=== PATIENT | female | born 1955 | race Hispanic/Latino ===

== ENCOUNTER 2019-12-12 10:09 | Emergency (ER) | payer MEDICARE ==
[~2019-12-12 10:09] MED LIST: ACET1TAB12 PO; AMLO-258 PO; AMOX-429 PO; CAND16TA12 PO; HYDR25TA PO; LEVO175T9 PO; LORA10TA7 PO; MELO-106 PO; METF-445 PO; TRAZ-185 PO
[2019-12-12 11:18] LABS: CREATININE 3.5 mg/dL (0.5-1.5); POTASSIUM 4.8 mmol/L (3.5-5.1)
[2019-12-12 11:19] LABS: ALBUMIN 2.8 g/dL (3.5-5.0); BILIRUBIN,TOTAL 0.6 mg/dL (0.2-1.0); TOTAL PROTEIN, SERUM 7.5 g/dL (6.0-8.3)
[2019-12-12 11:31] LABS: BASOPHILS % (AUTO) 0.6 % (0.0-5.0); EOSINOPHILS % (AUTO) 2.2 % (0.0-8.0); HEMATOCRIT 32.9 % (36-48); LYMPHOCYTES % (AUTO) 18.9 % (21.0-51.0); MEAN CORPUSCULAR HEMOGLOBIN 29.5 pg (27.0-33.0); MEAN CORPUSCULAR HGB CONC 31.6 g/dL (32.0-36.0); MEAN CORPUSCULAR VOLUME 93.2 fL (79-99); MONOCYTES % (AUTO) 5.7 % (3.0-13.0); NEUTROPHILS % (AUTO) 72.4 % (40.0-77.0); PLATELET COUNT (AUTO) 161 K/uL (130-400); RED BLOOD CELL COUNT(AUTO) 3.53 MIL/uL (4.00-5.50); RED CELL DISTRIBUTION WIDTH 14.1 % (11.0-15.5); WHITE BLOOD COUNT (AUTO) 5.1 K/uL (4.8-10.8)
[2019-12-12 11:38] LABS: INR 0.93 (0.85-1.15); PARTIAL THROMBOPLASTIN TIME 31.8 SEC (26.3-35.5); PROTHROMBIN TIME 10.1 SEC (9.6-11.6)
--- NOTE | 2019-12-12 13:10 | NUR ---
RE:PARACENTESIS PROCEDURE PERFORMED BY DR Colt BROWNE. PUNCTURE SITE LLQ. PATIENT TOLERATED PROCEDURE WELL. TOTAL REMOVED 5 LITERS OF CLOUDY YELLOW FLUID. ALBUMIN 25% 25GRAMS IV GIVEN PER [facility] ALBUMIN PROTOCOL. END OF PROCEDURE AT 1300. REPORT GIVEN TO VIVI ORTIZ AND PATIENT TRANSPORTED TO ED 13 VIA STRETCHER.
[2019-12-12] MEDS ORDERED: ALBUMIN (HUMAN) 25% 100 ML IV ONE (13:23)
== END 2019-12-12 15:06 | disposition home or self-care (01) ==
LOC: EDH 10:09
DX: R10.84 Generalized abdominal pain (principal); R18.8 Other ascites; F41.9 Anxiety disorder, unspecified; F32.9 Major depressive disorder, single episode, unspecified; E11.9 Type 2 diabetes mellitus without complications; I10 Essential (primary) hypertension; E78.5 Hyperlipidemia, unspecified; Z90.49 Acquired absence of other specified parts of digestive tract; Z87.891 Personal history of nicotine dependence
CPT/HCPCS: 36415; 49083; 80053; 85025; 85610; 85730; 96365; 99285; A4215; P9046

== ENCOUNTER 2020-01-03 12:49 | Emergency (ER) | payer MEDICARE ==
[2020-01-03] MEDS ORDERED: FUROSEMIDE 10 MG/ML 4ML VIAL ONE (14:04)
== END 2020-01-03 14:57 | disposition home or self-care (01) ==
LOC: EDH 12:49
DX: N18.9 Chronic kidney disease, unspecified (principal); R18.8 Other ascites; E11.9 Type 2 diabetes mellitus without complications; I10 Essential (primary) hypertension; F41.9 Anxiety disorder, unspecified; F32.9 Major depressive disorder, single episode, unspecified; E78.5 Hyperlipidemia, unspecified; Z90.49 Acquired absence of other specified parts of digestive tract; Z87.891 Personal history of nicotine dependence
CPT/HCPCS: 36415; 71045; 80053; 83690; 84484; 85025; 85610; 85730; 93005; 96374; 99285; J1940

== ENCOUNTER → 2020-06-17 | Outpatient (CLI) | payer OTHER, MEDICARE ==
[~2020-06-17] MED LIST changes: +ALBUMIN (HUMAN) 25% 200 ML IV SCH
--- NOTE | 2020-06-17 10:50 | NUR ---
U/S GUIDED PARACENTESIS PROCEDURE PERFORMED BY DR. CHING. PUNCTURE SITE LEFT LOWER QUADRANT AND PATIENT TOLERATED PROCEDURE WELL. TOTAL REMOVED 8.0 LITERS OF CLOUDY YELLOW TINGED ASCITES FLUID. END OF PROCEDURE AT 1130. CATHETER REMOVED AND DRESSING APPLIED. NO BLEEDING NOTED. ALBUMIN 25% 50 GRAMS GIVEN IV PER ALBUMIN PROTOCOL. RIGHT HAND PIV DC'D, BANDAID APPLIED, DRESSING DRY AND INTACT. DISCHARGE INSTRUCTIONS GIVEN TO PATIENT. PATIENT VERBALIZED UNDERSTANDING. PT DISCHARGED VIA WALKER @ 1150. PT STABLE, AAO X 3 WITH NO C/O PAIN.
[2020-06-17 10:58] LABS: BASOPHILS % (AUTO) 0.5 % (0.0-5.0); EOSINOPHILS % (AUTO) 1.4 % (0.0-8.0); HEMATOCRIT 37.3 % (36-48); LYMPHOCYTES % (AUTO) 15.3 % (21.0-51.0); MEAN CORPUSCULAR HEMOGLOBIN 30.5 pg (27.0-33.0); MEAN CORPUSCULAR HGB CONC 31.9 g/dL (32.0-36.0); MEAN CORPUSCULAR VOLUME 95.6 fL (79-99); MONOCYTES % (AUTO) 5.1 % (3.0-13.0); NEUTROPHILS % (AUTO) 77.5 % (40.0-77.0); PLATELET COUNT (AUTO) 184 K/uL (130-400); RED CELL DISTRIBUTION WIDTH 13.7 % (11.0-15.5); WHITE BLOOD COUNT (AUTO) 6.7 K/uL (4.8-10.8)
[2020-06-17 11:08] LABS: BILIRUBIN,TOTAL 0.6 mg/dL (0.2-1.0); CREATININE 3.7 mg/dL (0.5-1.5); POTASSIUM 4.9 mmol/L (3.5-5.1); TOTAL PROTEIN, SERUM 7.5 g/dL (6.0-8.3)
[2020-06-17 12:07] LABS: INR 0.96 (0.85-1.15); PROTHROMBIN TIME 10.3 SEC (9.6-11.6)
[2020-06-17 17:40] LABS: APPEARANCE BODY FLUID CLEAR (CLEAR); BODY FLUID WBC 247 /cu. mm.; COLOR,BODY FLUID YELLOW (LT YELLOW); SPECIMENTYPE,BODY FLUID ASCITES; TOTAL VOLUME,BODY FLUID 8000 mL
[2020-06-17 17:41] LABS: BODY FLUID RBC 131 /cu. mm.
[2020-06-17 17:54] LABS: BF LYMPHOCYTE 40 %; BF OTHER CELLS 13
== END ==
LOC: RAH 10:27
PROVIDERS: ATTEND Internal Medicine Gastroenterology
DX: R18.8 Other ascites (principal)
CPT/HCPCS: 36415; 49083; 80053; 85025; 85610; 87071; 87205; 89051; A4215; P9046; 96365

== ENCOUNTER → 2020-07-06 | Outpatient (CLI) | payer OTHER, MEDICARE ==
[~2020-07-06] MED LIST changes: +ALBUMIN (HUMAN) 25% 200 ML IV ONE; -ALBUMIN (HUMAN) 25% 200 ML IV SCH; +LEVO500T89 PO
[2020-07-06 13:41] LABS: APPEARANCE BODY FLUID CLEAR (CLEAR); COLOR,BODY FLUID YELLOW (LT YELLOW); SPECIMENTYPE,BODY FLUID ASCITES; TOTAL VOLUME,BODY FLUID 8100 mL
[2020-07-06 13:42] LABS: BODY FLUID RBC 314 /cu. mm.; BODY FLUID WBC 227 /cu. mm.
[2020-07-06 14:00] LABS: BF LYMPHOCYTE 57 %; BF MESOTHELIAL 40 %
== END | disposition home or self-care (01) ==
LOC: RAH 07:52
PROVIDERS: ATTEND Internal Medicine Gastroenterology
DX: R18.8 Other ascites (principal); E11.22 Type 2 diabetes mellitus with diabetic chronic kidney disease; I12.9 Hypertensive chronic kidney disease with stage 1 through stage 4 chronic kidney disease, or unspecified chronic kidney disease; N18.9 Chronic kidney disease, unspecified; E03.9 Hypothyroidism, unspecified; E78.5 Hyperlipidemia, unspecified; I10 Essential (primary) hypertension; E66.9 Obesity, unspecified; F17.200 Nicotine dependence, unspecified, uncomplicated; D64.9 Anemia, unspecified; Z90.49 Acquired absence of other specified parts of digestive tract; Z80.51 Family history of malignant neoplasm of kidney; Z82.49 Family history of ischemic heart disease and other diseases of the circulatory system; Z68.37 Body mass index [BMI] 37.0-37.9, adult
CPT/HCPCS: 49083; 87071; 87205; 88112; 88305; 88341; 88342; 89051; A4215; 96365

== ENCOUNTER → 2020-07-16 | Outpatient (CLI) | payer OTHER, MEDICARE ==
[~2020-07-16] MED LIST changes: -ALBUMIN (HUMAN) 25% 200 ML IV ONE; +ALBUMIN (HUMAN) 25% 200 ML IV SCH; -LEVO500T89 PO
[2020-07-16 17:00] LABS: APPEARANCE BODY FLUID SLIGHTLY CLOUDY (CLEAR); SPECIMENTYPE,BODY FLUID ASCITES
[2020-07-16 17:01] LABS: BODY FLUID WBC 215 /cu. mm.; COLOR,BODY FLUID LT YELLOW (LT YELLOW); TOTAL VOLUME,BODY FLUID 4200 mL
[2020-07-16 17:02] LABS: BODY FLUID RBC 249 /cu. mm.
[2020-07-16 18:12] LABS: BF LYMPHOCYTE 34 %; BF OTHER CELLS 24
== END ==
LOC: RAH 07:45
PROVIDERS: ATTEND Internal Medicine Gastroenterology
DX: R18.8 Other ascites (principal)
CPT/HCPCS: 49083; 87071; 87205; 89051; A4215; P9046; 96365

== ENCOUNTER 2020-07-30 12:35 | Observation (INO) | payer OTHER, MEDICARE ==
[~2020-07-30] VITALS: Ht 154.9 cm; Wt 85.6 kg
[~2020-07-30 12:35] MED LIST changes: -ALBUMIN (HUMAN) 25% 200 ML IV SCH
[2020-07-30 13:05] LABS: BASOPHILS % (AUTO) 0.7 % (0.0-5.0); EOSINOPHILS % (AUTO) 2.9 % (0.0-8.0); HEMATOCRIT 34.9 % (36-48); LYMPHOCYTES % (AUTO) 22.6 % (21.0-51.0); MEAN CORPUSCULAR HEMOGLOBIN 29.6 pg (27.0-33.0); MEAN CORPUSCULAR HGB CONC 31.8 g/dL (32.0-36.0); MEAN CORPUSCULAR VOLUME 93.1 fL (79-99); NEUTROPHILS % (AUTO) 66.6 % (40.0-77.0); PLATELET COUNT (AUTO) 162 K/uL (130-400); RED BLOOD CELL COUNT(AUTO) 3.75 MIL/uL (4.00-5.50); RED CELL DISTRIBUTION WIDTH 13.4 % (11.0-15.5); WHITE BLOOD COUNT (AUTO) 4.4 K/uL (4.8-10.8)
[2020-07-30 13:19] LABS: APPEARANCE,URINE Clear (CLEAR); BILIRUBIN,URINE Negative (NEGATIVE); COLOR,URINE Yellow (YELLOW); GLUCOSE, URINE (UA) 250 mg/dL (NEGATIVE); KETONES,URINE Negative (NEGATIVE); LEUKOCYTE ESTERASE ,URINE Negative (NEGATIVE); NITRATE,URINE Negative (NEGATIVE); OCCULT BLOOD,URINE Negative (NEGATIVE); PROTEIN,URINE 300 mg/dL (NEGATIVE); UROBILINOGEN,URINE 0.2 mg/dL (0.2-1.0)
[2020-07-30 13:20] LABS: CREATININE 3.2 mg/dL (0.5-1.5); POTASSIUM 4.8 mmol/L (3.5-5.1)
[2020-07-30 13:23] LABS: INR 1.01 (0.85-1.15)
[2020-07-30 13:24] LABS: ALBUMIN 3.1 g/dL (3.5-5.0); BILIRUBIN,TOTAL 0.5 mg/dL (0.2-1.0); TOTAL PROTEIN, SERUM 7.3 g/dL (6.0-8.3)
[2020-07-30 13:25] LABS: PARTIAL THROMBOPLASTIN TIME 31.3 SEC (26.3-35.5)
[2020-07-30 13:53] LABS: B-TYPE NATRIURETIC PEPTIDE 104 pg/mL (0-100)
[2020-07-30 14:05] LABS: AMORPHOUS SEDIMENT,UR Few /LPF (None Seen); BACTERIA,URINE Few /HPF (None Seen); RBC,URINE None Seen /HPF (0-1)
[2020-07-30] MEDS ORDERED: ZOSYN 3.375GM +NS 50ML IV SCH (14:30)
[2020-07-30] MEDS ORDERED: LABETALOL 20 MG/4 ML DISP.SYRIN IV PRN (14:30)
[2020-07-30] MEDS ORDERED: ACETAMINOPHEN 325 MG TAB PO PRN (14:30)
[2020-07-30] MEDS ORDERED: ONDANSETRON HCL 4 MG/2 ML VIAL IVP PRN (14:30)
[2020-07-30] MEDS ORDERED: CLONIDINE HCL 0.1 MG TABLET PO PRN (14:30)
[2020-07-30] MEDS ORDERED: RENAL DOSE IV PRN (14:30)
[2020-07-30] MEDS ORDERED: ACETAMINOPHEN 650 MG SUPPOSITORY RC PRN (14:30)
[2020-07-30] MEDS ORDERED: ZOSYN 3.375GM+NS 50ML 50 ML IV ONE (14:45)
[2020-07-30] MEDS ORDERED: LABETALOL 20 MG/4 ML DISP.SYRIN IV ONE (14:46)
[2020-07-30] MEDS: ZOSYN 3.375GM+NS 50ML 50 ML IV SCH (16:00)
[2020-07-30] MEDS ORDERED: ALBUMIN (HUMAN) 25% 200 ML IV ONE (16:15)
[2020-07-30] MEDS: METOCLOPRAMIDE 5 MG TABLET PO SCH ×2 (16:30→20:38)
[2020-07-30] MEDS ORDERED: CLONIDINE HCL 0.1 MG TABLET ONE (16:35)
[2020-07-30 16:40] LABS: ALBUMIN,BODY FLUID 1.5 g/dL
[2020-07-30 16:57] LABS: APPEARANCE BODY FLUID SLIGHTLY CLOUDY (CLEAR); COLOR,BODY FLUID YELLOW (LT YELLOW); SPECIMENTYPE,BODY FLUID ASCITES; TOTAL VOLUME,BODY FLUID 5000 mL
[2020-07-30 16:58] LABS: BODY FLUID RBC 162 /cu. mm.; BODY FLUID WBC 147 /cu. mm.
[2020-07-30 17:29] LABS: BF LYMPHOCYTE 22 %; BF MESOTHELIAL 70 %
[2020-07-30 19:00] VITALS: BP 145/49
[2020-07-30 20:00] VITALS: BP 145/49
[2020-07-30] MEDS: LACTULOSE 20 GM/30 ML UDCUP PO SCH (20:38)
[2020-07-30 23:40] VITALS: BP 132/54
[2020-07-31 04:05] VITALS: BP 152/47
[2020-07-31] MEDS: ZOSYN 3.375GM+NS 50ML 50 ML IV SCH (04:37)
[2020-07-31] MEDS: INSULIN HUMULIN R 100 UNIT/ML 3ML SQ SCH ×2 (06:05→11:33)
[2020-07-31 06:33] LABS: BASOPHILS % (AUTO) 0.5 % (0.0-5.0); EOSINOPHILS % (AUTO) 3.5 % (0.0-8.0); HEMATOCRIT 32.1 % (36-48); LYMPHOCYTES % (AUTO) 25.6 % (21.0-51.0); MEAN CORPUSCULAR HGB CONC 32.1 g/dL (32.0-36.0); MEAN CORPUSCULAR VOLUME 93.6 fL (79-99); MONOCYTES % (AUTO) 8.8 % (3.0-13.0); NEUTROPHILS % (AUTO) 61.3 % (40.0-77.0); PLATELET COUNT (AUTO) 137 K/uL (130-400); RED BLOOD CELL COUNT(AUTO) 3.43 MIL/uL (4.00-5.50); RED CELL DISTRIBUTION WIDTH 13.4 % (11.0-15.5); WHITE BLOOD COUNT (AUTO) 3.8 K/uL (4.8-10.8)
[2020-07-31] MEDS: METOCLOPRAMIDE 5 MG TABLET PO SCH ×2 (06:39→11:30)
[2020-07-31 06:40] LABS: CREATININE 3.1 mg/dL (0.5-1.5); POTASSIUM 4.7 mmol/L (3.5-5.1)
[2020-07-31 08:00] VITALS: BP 164/65
[2020-07-31] MEDS: LACTULOSE 20 GM/30 ML UDCUP PO SCH (08:14)
[2020-07-31] MEDS ORDERED: PANTOPRAZOLE SODIUM 40 MG TABLET.DR PO SCH (09:00)
[2020-07-31] MEDS ORDERED: Vitamin B Complex/Vit C/Folic Acid PO SCH (09:00)
[2020-07-31 12:00] VITALS: BP 184/59
[2020-07-31] MEDS ORDERED: LEVO500T89 PO ×2 (12:16)
[2020-07-31] MEDS ORDERED: AMLODIPINE BESYLATE 5 MG TAB PO SCH (12:48)
[2020-07-31] MEDS ORDERED: METFORMIN HCL 850 MG TABLET PO SCH (17:00)
[2020-07-31] MEDS ORDERED: TRAZODONE HCL 50 MG TAB PO SCH (21:00)
[2020-08-01] MEDS ORDERED: LEVOTHYROXINE 75 MCG TABLET PO SCH (07:30)
[2020-08-01] MEDS ORDERED: LEVOTHYROXINE 100 MCG TABLET PO SCH (07:30)
[2020-08-01] MEDS ORDERED: CANDESARTAN CILEXETIL 16 MG TAB PO SCH (09:00)
[2020-08-01] MEDS ORDERED: LORATADINE 10 MG TABLET PO SCH (09:00)
[2020-08-01] MEDS ORDERED: HYDROCHLOROTHIAZIDE 25 MG TABLET PO SCH (09:00)
== END 2020-07-31 13:40 | disposition home or self-care (01) ==
LOC: EDH 12:35 → EDHIP 14:18 → 3AH 19:02
PROVIDERS: ADMIT Internal Medicine Critical Care Medicine; ATTEND Internal Medicine Critical Care Medicine
DX: K70.31 Alcoholic cirrhosis of liver with ascites (principal); Z20.822 Contact with and (suspected) exposure to COVID-19; E87.70 Fluid overload, unspecified; I12.9 Hypertensive chronic kidney disease with stage 1 through stage 4 chronic kidney disease, or unspecified chronic kidney disease; E11.22 Type 2 diabetes mellitus with diabetic chronic kidney disease; N18.4 Chronic kidney disease, stage 4 (severe); E78.5 Hyperlipidemia, unspecified; E03.9 Hypothyroidism, unspecified; N17.9 Acute kidney failure, unspecified; D64.9 Anemia, unspecified; F41.9 Anxiety disorder, unspecified; F32.9 Major depressive disorder, single episode, unspecified; E66.9 Obesity, unspecified; Z90.49 Acquired absence of other specified parts of digestive tract; Z79.4 Long term (current) use of insulin; Z79.899 Other long term (current) drug therapy; Z68.35 Body mass index [BMI] 35.0-35.9, adult
CPT/HCPCS: 36415 ×2; 49083; 71045; 74176; 76770; 80048; 80053; 81001; 82042; 82140; 82550; 82948 ×3; 83880; 83935; 84300; 84484 ×3; 85025 ×2; 85610; 85730; 87071; 87205; 87426; 88305; 88112; 88341; 88342; 89051; 93005; 96365; 96366; 99291; A4215; G0378 ×24; J1815; J2543 ×2; P9046; U0003

== ENCOUNTER → 2020-08-17 | Outpatient (CLI) | payer OTHER, MEDICARE ==
[~2020-08-17] MED LIST changes: +ALBUMIN (HUMAN) 25% 200 ML IV SCH; -AMOX-429 PO; +LEVO500T89 PO
[2020-08-17 08:34] LABS: BASOPHILS % (AUTO) 0.8 % (0.0-5.0); EOSINOPHILS % (AUTO) 3.7 % (0.0-8.0); HEMATOCRIT 34.1 % (36-48); LYMPHOCYTES % (AUTO) 25.9 % (21.0-51.0); MEAN CORPUSCULAR HEMOGLOBIN 30.2 pg (27.0-33.0); MEAN CORPUSCULAR HGB CONC 32.3 g/dL (32.0-36.0); MEAN CORPUSCULAR VOLUME 93.7 fL (79-99); MONOCYTES % (AUTO) 7.9 % (3.0-13.0); NEUTROPHILS % (AUTO) 61.4 % (40.0-77.0); PLATELET COUNT (AUTO) 147 K/uL (130-400); RED BLOOD CELL COUNT(AUTO) 3.64 MIL/uL (4.00-5.50); RED CELL DISTRIBUTION WIDTH 13.8 % (11.0-15.5); WHITE BLOOD COUNT (AUTO) 3.8 K/uL (4.8-10.8)
[2020-08-17 08:47] LABS: INR 1.02 (0.85-1.15); PROTHROMBIN TIME 11.1 SEC (9.6-11.6)
[2020-08-17 08:52] LABS: ALBUMIN 3.2 g/dL (3.5-5.0); BILIRUBIN,TOTAL 0.7 mg/dL (0.2-1.0); CREATININE 3.2 mg/dL (0.5-1.5); POTASSIUM 5.1 mmol/L (3.5-5.1); TOTAL PROTEIN, SERUM 7.5 g/dL (6.0-8.3)
[2020-08-17 17:05] LABS: ALBUMIN,BODY FLUID 1.4 g/dL
[2020-08-17 17:40] LABS: APPEARANCE BODY FLUID SLIGHTLY CLOUDY (CLEAR); BODY FLUID WBC 91 /cu. mm.; COLOR,BODY FLUID YELLOW (LT YELLOW); SPECIMENTYPE,BODY FLUID ASCITES; TOTAL VOLUME,BODY FLUID 7000 mL
[2020-08-17 17:41] LABS: BODY FLUID RBC 111 /cu. mm.
[2020-08-17 18:29] LABS: BF LYMPHOCYTE 48 %; BF MESOTHELIAL 30 %
== END ==
LOC: RAH 08:03
PROVIDERS: ATTEND Internal Medicine Gastroenterology
DX: R18.8 Other ascites (principal); E03.9 Hypothyroidism, unspecified; E78.5 Hyperlipidemia, unspecified; E11.22 Type 2 diabetes mellitus with diabetic chronic kidney disease; I12.9 Hypertensive chronic kidney disease with stage 1 through stage 4 chronic kidney disease, or unspecified chronic kidney disease; N18.9 Chronic kidney disease, unspecified; D64.9 Anemia, unspecified; R93.2 Abnormal findings on diagnostic imaging of liver and biliary tract; Z90.49 Acquired absence of other specified parts of digestive tract; Z86.010 Personal history of colon polyps; Z79.899 Other long term (current) drug therapy
CPT/HCPCS: 36415; 49083; 80053; 82042; 84157; 85025; 85610; 87071; 87205; 89051; A4215; P9046; 96365

== ENCOUNTER → 2020-08-24 | Outpatient (CLI) | payer OTHER, MEDICARE | LOC: RAH 08:26 | PROVIDERS: ATTEND Internal Medicine Gastroenterology | DX: R18.8 Other ascites (principal); E78.5 Hyperlipidemia, unspecified; I12.9 Hypertensive chronic kidney disease with stage 1 through stage 4 chronic kidney disease, or unspecified chronic kidney disease; E11.22 Type 2 diabetes mellitus with diabetic chronic kidney disease; N18.4 Chronic kidney disease, stage 4 (severe); E03.9 Hypothyroidism, unspecified; F41.9 Anxiety disorder, unspecified; F32.9 Major depressive disorder, single episode, unspecified | CPT/HCPCS: 76705; P9046 ==

== ENCOUNTER → 2020-08-31 | Outpatient (CLI) | payer OTHER, MEDICARE ==
[~2020-08-31] MED LIST changes: +ALBUMIN (HUMAN) 25% 200 ML IV PRN; -ALBUMIN (HUMAN) 25% 200 ML IV SCH
[2020-08-31 09:54] LABS: BASOPHILS % (AUTO) 0.6 % (0.0-5.0); EOSINOPHILS % (AUTO) 3.6 % (0.0-8.0); HEMATOCRIT 29.5 % (36-48); LYMPHOCYTES % (AUTO) 26.2 % (21.0-51.0); MEAN CORPUSCULAR HEMOGLOBIN 29.9 pg (27.0-33.0); MEAN CORPUSCULAR HGB CONC 31.5 g/dL (32.0-36.0); MEAN CORPUSCULAR VOLUME 94.9 fL (79-99); MONOCYTES % (AUTO) 7.5 % (3.0-13.0); NEUTROPHILS % (AUTO) 61.8 % (40.0-77.0); PLATELET COUNT (AUTO) 138 K/uL (130-400); RED BLOOD CELL COUNT(AUTO) 3.11 MIL/uL (4.00-5.50); RED CELL DISTRIBUTION WIDTH 14.1 % (11.0-15.5); WHITE BLOOD COUNT (AUTO) 3.3 K/uL (4.8-10.8)
[2020-08-31 10:05] LABS: ALBUMIN 2.9 g/dL (3.5-5.0); BILIRUBIN,TOTAL 0.6 mg/dL (0.2-1.0); CREATININE 3.1 mg/dL (0.5-1.5); POTASSIUM 4.5 mmol/L (3.5-5.1); PROTHROMBIN TIME 10.9 SEC (9.6-11.6); TOTAL PROTEIN, SERUM 6.7 g/dL (6.0-8.3)
[2020-08-31 10:43] LABS: ALBUMIN,BODY FLUID 1.4 g/dL
[2020-08-31 12:08] LABS: APPEARANCE BODY FLUID CLEAR (CLEAR); COLOR,BODY FLUID LT YELLOW (LT YELLOW); SPECIMENTYPE,BODY FLUID ASCITES; TOTAL VOLUME,BODY FLUID 4500 mL
[2020-08-31 12:09] LABS: BODY FLUID RBC 140 /cu. mm.; BODY FLUID WBC 150 /cu. mm.
[2020-08-31 13:16] LABS: BF LYMPHOCYTE 32 %; BF MESOTHELIAL 16 %; BF MONOCYTE 7 %
== END ==
LOC: RAH 08:41
PROVIDERS: ATTEND Internal Medicine Gastroenterology
DX: R18.8 Other ascites (principal)
CPT/HCPCS: 36415; 49083; 80053; 82042; 84157; 85025; 85610; 87071; 87205; 89051; A4215; 96365

== ENCOUNTER → 2020-09-14 | Outpatient (CLI) | payer OTHER, MEDICARE ==
[~2020-09-14] MED LIST changes: -ALBUMIN (HUMAN) 25% 200 ML IV PRN; +ALBUMIN (HUMAN) 25% 200 ML IV SCH
[2020-09-14 09:37] LABS: HEMATOCRIT 31.6 % (36-48); MEAN CORPUSCULAR HGB CONC 31.6 g/dL (32.0-36.0); MEAN CORPUSCULAR VOLUME 94.9 fL (79-99); PLATELET COUNT (AUTO) 146 K/uL (130-400); RED BLOOD CELL COUNT(AUTO) 3.33 MIL/uL (4.00-5.50); RED CELL DISTRIBUTION WIDTH 14.3 % (11.0-15.5); WHITE BLOOD COUNT (AUTO) 4.1 K/uL (4.8-10.8)
[2020-09-14 09:53] LABS: BILIRUBIN,TOTAL 0.4 mg/dL (0.2-1.0); CREATININE 3.1 mg/dL (0.5-1.5); POTASSIUM 5.1 mmol/L (3.5-5.1); TOTAL PROTEIN, SERUM 7.1 g/dL (6.0-8.3)
[2020-09-14 09:56] LABS: INR 0.99 (0.85-1.15); PROTHROMBIN TIME 10.8 SEC (9.6-11.6)
[2020-09-14 10:25] LABS: BASOPHILS % (AUTO) 0.8 % (0.0-5.0); LYMPHOCYTES % (AUTO) 23.3 % (21.0-51.0); MONOCYTES % (AUTO) 7.4 % (3.0-13.0); NEUTROPHILS % (AUTO) 64.2 % (40.0-77.0)
[2020-09-14 11:16] LABS: ALBUMIN,BODY FLUID 1.4 g/dL
[2020-09-14 12:37] LABS: APPEARANCE BODY FLUID CLEAR (CLEAR); BODY FLUID WBC 203 /cu. mm.; COLOR,BODY FLUID LT YELLOW (LT YELLOW); SPECIMENTYPE,BODY FLUID ASCITES; TOTAL VOLUME,BODY FLUID 5300 mL
[2020-09-14 12:38] LABS: BODY FLUID RBC 98 /cu. mm.
[2020-09-14 12:44] LABS: BF LYMPHOCYTE 30 %; BF MESOTHELIAL 61 %
== END | disposition home or self-care (01) ==
LOC: RAH 07:53
PROVIDERS: ATTEND Internal Medicine Gastroenterology
DX: R18.8 Other ascites (principal)
CPT/HCPCS: 36415; 49083; 80053; 82042; 84157; 85025; 85610; 85730; 87071; 87205; 89051; 96365; A4215; P9046

== ENCOUNTER → 2020-09-29 | Outpatient (CLI) | payer OTHER, MEDICARE ==
[~2020-09-29] MED LIST changes: +AMOX-429 PO
[2020-09-29 16:45] LABS: SPECIMENTYPE,BODY FLUID ASCITES
[2020-09-29 16:46] LABS: APPEARANCE BODY FLUID SLIGHTLY CLOUDY (CLEAR); BODY FLUID RBC 170 /cu. mm.; BODY FLUID WBC 147 /cu. mm.; COLOR,BODY FLUID LT YELLOW (LT YELLOW); TOTAL VOLUME,BODY FLUID 5400 mL
[2020-09-29 17:32] LABS: BF LYMPHOCYTE 55 %; BF MESOTHELIAL 21 %
== END | disposition home or self-care (01) ==
LOC: RAH 07:53
PROVIDERS: ATTEND Internal Medicine Gastroenterology
DX: R18.8 Other ascites (principal); E11.22 Type 2 diabetes mellitus with diabetic chronic kidney disease; I12.9 Hypertensive chronic kidney disease with stage 1 through stage 4 chronic kidney disease, or unspecified chronic kidney disease; N18.9 Chronic kidney disease, unspecified; K59.00 Constipation, unspecified; E66.9 Obesity, unspecified; D64.9 Anemia, unspecified; F17.200 Nicotine dependence, unspecified, uncomplicated; E78.5 Hyperlipidemia, unspecified; E03.9 Hypothyroidism, unspecified; Z79.899 Other long term (current) drug therapy; Z79.4 Long term (current) use of insulin; Z79.890 Hormone replacement therapy; Z98.890 Other specified postprocedural states; Z90.49 Acquired absence of other specified parts of digestive tract; Z82.49 Family history of ischemic heart disease and other diseases of the circulatory system; Z80.51 Family history of malignant neoplasm of kidney; Z68.36 Body mass index [BMI] 36.0-36.9, adult; Z79.01 Long term (current) use of anticoagulants
CPT/HCPCS: 49083; 87071; 87205; 89051; A4215; P9046; 96365

== ENCOUNTER 2020-10-08 11:41 | Inpatient (IN) | payer OTHER, MEDICARE ==
[~2020-10-08] VITALS: Ht 157.5 cm; Wt 88.5 kg
[~2020-10-08 11:41] MED LIST changes: -ALBUMIN (HUMAN) 25% 200 ML IV SCH; -AMOX-429 PO; -CAND16TA12 PO; +CAND16TA28 PO; -LEVO500T89 PO; +LEVO500T90 PO
[2020-10-08 12:02] LABS: BASOPHILS % (AUTO) 0.8 % (0.0-5.0); EOSINOPHILS % (AUTO) 2.2 % (0.0-8.0); HEMATOCRIT 35.7 % (36-48); LYMPHOCYTES % (AUTO) 18.4 % (21.0-51.0); MEAN CORPUSCULAR HEMOGLOBIN 30.4 pg (27.0-33.0); MEAN CORPUSCULAR HGB CONC 31.9 g/dL (32.0-36.0); MEAN CORPUSCULAR VOLUME 95.2 fL (79-99); MONOCYTES % (AUTO) 5.7 % (3.0-13.0); NEUTROPHILS % (AUTO) 72.6 % (40.0-77.0); PLATELET COUNT (AUTO) 151 K/uL (130-400); RED BLOOD CELL COUNT(AUTO) 3.75 MIL/uL (4.00-5.50); WHITE BLOOD COUNT (AUTO) 6.5 K/uL (4.8-10.8)
[2020-10-08 12:16] LABS: INR 0.93 (0.85-1.15); PROTHROMBIN TIME 10.2 SEC (9.6-11.6)
[2020-10-08 12:21] LABS: B-TYPE NATRIURETIC PEPTIDE 135 pg/mL (0-100)
[2020-10-08 12:43] LABS: ALBUMIN 3.1 g/dL (3.5-5.0); BILIRUBIN,TOTAL 0.5 mg/dL (0.2-1.0); CREATININE 3.8 mg/dL (0.5-1.5); POTASSIUM 5.4 mmol/L (3.5-5.1)
[2020-10-08] MEDS ORDERED: MAG/ALUM/SIMETH 30 ML UDCUP ONE (12:50)
[2020-10-08] MEDS ORDERED: ASPIRIN 325 MG TABLET ONE (12:50)
[2020-10-08] MEDS ORDERED: LIDOCAINE HCL 2% VISCOUS 15 ML UDCUP ONE (12:50)
[2020-10-08 12:54] LABS: PARTIAL THROMBOPLASTIN TIME 28.8 SEC (26.3-35.5)
[2020-10-08 13:02] LABS: MAGNESIUM 2.7 mg/dL (1.80-2.40); PHOSPHORUS 4.6 mg/dL (2.5-4.9)
[2020-10-08] MEDS ORDERED: LACTULOSE 20 GM/30 ML UDCUP PO PRN (14:45)
[2020-10-08] MEDS ORDERED: ALBUTEROL 0.083% 2.5 MG/3 ML INH IH ONE ×2 (14:45→15:28)
[2020-10-08] MEDS ORDERED: DiphenhydrAMINE HCL 50 MG/ML VIAL IV PRN (14:45)
[2020-10-08] MEDS ORDERED: GUAIFENESIN-DM 200/20 MG 10 ML PO PRN (14:45)
[2020-10-08] MEDS ORDERED: MAG/ALUM/SIMETH 30 ML UDCUP PO PRN (14:45)
[2020-10-08] MEDS ORDERED: ACETAMINOPHEN 325 MG TAB PO PRN ×2 (14:45)
[2020-10-08] MEDS ORDERED: DIPHENHYDRAMINE HCL 25 MG CAPSULE PO PRN (14:45)
[2020-10-08] MEDS ORDERED: INSULIN HUMULIN R 100 UNIT/ML 3ML SQ SCH (14:45)
[2020-10-08] MEDS ORDERED: DEXTROSE 50%-WATER 25 GM/50 ML VIAL IV SCH (14:45)
[2020-10-08] MEDS ORDERED: NITROGLYCERIN 0.4 MG SL TAB SL PRN (14:45)
[2020-10-08] MEDS ORDERED: ONDANSETRON 4MG INJ IV PRN (14:45)
[2020-10-08] MEDS: FUROSEMIDE 20MG VIAL IV SCH (14:45)
[2020-10-08] MEDS ORDERED: CACL 1GM SYG IVP SCH (15:50)
[2020-10-08] MEDS ORDERED: FUROSEMIDE 20MG VIAL ONE (15:50)
[2020-10-08] MEDS ORDERED: DEXTROSE 50%-WATER 50 ML DISP.SYRIN IV ONE ×2 (15:51→18:09)
[2020-10-08] MEDS ORDERED: INSULIN HUMULIN R 100 UNIT/ML 3ML ONE (15:52)
[2020-10-08] MEDS ORDERED: 0.9%NACL 100ML 100 ML IV ONE (15:52)
[2020-10-08] MEDS ORDERED: DEXTROSE 50%-WATER 50 ML DISP.SYRIN IV PRN (16:30)
[2020-10-08] MEDS: INSULIN HUMULIN R 100 UNIT/ML 3ML SQ SCH ×2 (16:30→21:00)
[2020-10-08] MEDS ORDERED: GLUCAGON 1MG KIT 1 MG ML IM PRN (16:30)
[2020-10-08 16:46] LABS: APPEARANCE,URINE Clear (CLEAR); BILIRUBIN,URINE Negative (NEGATIVE); COLOR,URINE Yellow (YELLOW); GLUCOSE, URINE (UA) TRACE mg/dL (NEGATIVE); KETONES,URINE Negative (NEGATIVE); LEUKOCYTE ESTERASE ,URINE Trace (NEGATIVE); NITRATE,URINE Negative (NEGATIVE); OCCULT BLOOD,URINE Negative (NEGATIVE); PROTEIN,URINE 300 mg/dL (NEGATIVE); UROBILINOGEN,URINE 0.2 mg/dL (0.2-1.0)
[2020-10-08 16:51] LABS: BACTERIA,URINE Few /HPF (None Seen); RBC,URINE 0-1 /HPF (0-1); SQUAMOUS EPITHELIAL CELL,UR Few /HPF (0-2)
[2020-10-08 18:39] LABS: CREATININE 3.7 mg/dL (0.5-1.5); POTASSIUM 4.3 mmol/L (3.5-5.1)
[2020-10-08] MEDS ORDERED: METOPROLOL TARTRATE 25 MG TAB ONE (20:29)
[2020-10-08] MEDS ORDERED: HEPARIN 5,000 UNIT VIAL ONE (20:29)
[2020-10-08] MEDS ORDERED: FAMOTIDINE 20MG TAB ONE (20:29)
[2020-10-08] MEDS: METOPROLOL TARTRATE 25 MG TAB PO SCH (21:00)
[2020-10-08] MEDS: HEPARIN 5,000 UNIT VIAL SQ SCH (21:00)
[2020-10-08] MEDS: INSULIN GLARGINE 100 UNITS/ML 10 ML VIAL SQ SCH (21:00)
[2020-10-08] MEDS: FAMOTIDINE 20MG TAB PO SCH (21:00)
[2020-10-08] MEDS: LACTULOSE 20 GM/30 ML UDCUP PO SCH (21:00)
[2020-10-09] VITALS (12 sets, daily range): BP systolic 124–194; BP diastolic 48–85
[2020-10-09 05:20] LABS: BASOPHILS % (AUTO) 0.6 % (0.0-5.0); EOSINOPHILS % (AUTO) 2.2 % (0.0-8.0); HEMATOCRIT 29.2 % (36-48); MEAN CORPUSCULAR HEMOGLOBIN 30.8 pg (27.0-33.0); MEAN CORPUSCULAR HGB CONC 32.5 g/dL (32.0-36.0); MEAN CORPUSCULAR VOLUME 94.8 fL (79-99); PLATELET COUNT (AUTO) 129 K/uL (130-400); RED BLOOD CELL COUNT(AUTO) 3.08 MIL/uL (4.00-5.50); RED CELL DISTRIBUTION WIDTH 14.1 % (11.0-15.5); WHITE BLOOD COUNT (AUTO) 4.7 K/uL (4.8-10.8)
[2020-10-09] MEDS: INSULIN HUMULIN R 100 UNIT/ML 3ML SQ SCH ×4 (05:43→21:00)
[2020-10-09 05:47] LABS: ALBUMIN 2.6 g/dL (3.5-5.0); BILIRUBIN,TOTAL 0.4 mg/dL (0.2-1.0); CREATININE 3.7 mg/dL (0.5-1.5); POTASSIUM 5.4 mmol/L (3.5-5.1); TOTAL PROTEIN, SERUM 6.2 g/dL (6.0-8.3)
[2020-10-09] MEDS: LACTULOSE 20 GM/30 ML UDCUP PO SCH ×3 (07:53→22:20)
[2020-10-09] MEDS: METOPROLOL TARTRATE 25 MG TAB PO SCH ×2 (07:53→22:22)
[2020-10-09] MEDS: ASPIRIN 325 MG TABLET PO SCH (07:53)
[2020-10-09] MEDS: HEPARIN 5,000 UNIT VIAL SQ SCH ×2 (07:54→22:28)
[2020-10-09] MEDS ORDERED: KAYEXALATE 15GM/60ML PO SCH (09:00)
[2020-10-09] MEDS ORDERED: Vitamin B Complex/Vit C/Folic Acid PO SCH (09:00)
[2020-10-09] MEDS ORDERED: LABETALOL 20MG SYG IV PRN (12:30)
[2020-10-09] MEDS: NIFEDIPINE 10 MG CAP PO SCH ×2 (13:20→22:22)
[2020-10-09] MEDS: FUROSEMIDE 20MG VIAL IV SCH (13:20)
[2020-10-09] MEDS ORDERED: ALBUMIN (HUMAN) 25% 100 ML IV ONE (15:06)
[2020-10-09] MEDS ORDERED: ALBUMIN (HUMAN) 25% 200 ML IV ONE (16:00)
[2020-10-09 16:17] LABS: APPEARANCE BODY FLUID SLIGHTLY CLOUDY (CLEAR); COLOR,BODY FLUID YELLOW (LT YELLOW); SPECIMENTYPE,BODY FLUID ASCITES; TOTAL VOLUME,BODY FLUID 4000 mL
[2020-10-09 16:18] LABS: BODY FLUID WBC 195 /cu. mm.
[2020-10-09 16:19] LABS: BODY FLUID RBC 118 /cu. mm.
[2020-10-09 16:24] LABS: BF EOSINOPHIL 8 %; BF LYMPHOCYTE 26 %; BF MESOTHELIAL 38 %; BF OTHER CELLS 3
[2020-10-09] MEDS: FAMOTIDINE 20MG TAB PO SCH (22:22)
[2020-10-09] MEDS: INSULIN GLARGINE 100 UNITS/ML 10 ML VIAL SQ SCH (22:29)
[2020-10-10 00:12] VITALS: BP 114/59
[2020-10-10 04:12] VITALS: BP 147/72
[2020-10-10 05:08] LABS: BASOPHILS % (AUTO) 0.4 % (0.0-5.0); EOSINOPHILS % (AUTO) 3.2 % (0.0-8.0); HEMATOCRIT 29.3 % (36-48); MEAN CORPUSCULAR HEMOGLOBIN 30.2 pg (27.0-33.0); MEAN CORPUSCULAR HGB CONC 31.4 g/dL (32.0-36.0); MEAN CORPUSCULAR VOLUME 96.1 fL (79-99); MONOCYTES % (AUTO) 9.3 % (3.0-13.0); NEUTROPHILS % (AUTO) 56.9 % (40.0-77.0); PLATELET COUNT (AUTO) 134 K/uL (130-400); RED BLOOD CELL COUNT(AUTO) 3.05 MIL/uL (4.00-5.50); RED CELL DISTRIBUTION WIDTH 14.1 % (11.0-15.5); WHITE BLOOD COUNT (AUTO) 4.7 K/uL (4.8-10.8)
[2020-10-10 05:22] LABS: % IRON SATURATION 40.8 % (22-44); ALBUMIN 2.5 g/dL (3.5-5.0); BILIRUBIN,TOTAL 0.3 mg/dL (0.2-1.0); CREATININE 3.9 mg/dL (0.5-1.5); MAGNESIUM 1.8 mg/dL (1.80-2.40); PHOSPHORUS 4.4 mg/dL (2.5-4.9); POTASSIUM 4.6 mmol/L (3.5-5.1); TOTAL PROTEIN, SERUM 6.1 g/dL (6.0-8.3); URIC ACID 7.3 mg/dL (2.6-7.2)
[2020-10-10] MEDS: INSULIN HUMULIN R 100 UNIT/ML 3ML SQ SCH ×2 (05:48→10:52)
[2020-10-10 08:00] VITALS: BP 164/76
[2020-10-10] MEDS: NIFEDIPINE 10 MG CAP PO SCH (09:12)
[2020-10-10] MEDS: METOPROLOL TARTRATE 25 MG TAB PO SCH (09:12)
[2020-10-10] MEDS: ASPIRIN 325 MG TABLET PO SCH (09:12)
[2020-10-10] MEDS: LACTULOSE 20 GM/30 ML UDCUP PO SCH (09:12)
[2020-10-10] MEDS: HEPARIN 5,000 UNIT VIAL SQ SCH (09:13)
== END 2020-10-10 11:41 | disposition home or self-care (01) | DRG 433 ==
LOC: EDH 11:41 → EDHIP 14:35 → 4DH 10-09 00:10
PROVIDERS: ADMIT Family Medicine; ATTEND Family Medicine
PROC: 0W9G3ZZ Drainage of Peritoneal Cavity, Percutaneous Approach (ICD-10-PCS; principal; 2020-10-09)
DX: K74.60 Unspecified cirrhosis of liver (principal); N17.9 Acute kidney failure, unspecified; I12.0 Hypertensive chronic kidney disease with stage 5 chronic kidney disease or end stage renal disease; N18.5 Chronic kidney disease, stage 5; R18.8 Other ascites; D63.8 Anemia in other chronic diseases classified elsewhere; E03.9 Hypothyroidism, unspecified; E11.22 Type 2 diabetes mellitus with diabetic chronic kidney disease; E78.5 Hyperlipidemia, unspecified; E87.5 Hyperkalemia; F17.210 Nicotine dependence, cigarettes, uncomplicated; F32.9 Major depressive disorder, single episode, unspecified; F41.9 Anxiety disorder, unspecified; E66.01 Morbid (severe) obesity due to excess calories; N20.0 Calculus of kidney; Z80.51 Family history of malignant neoplasm of kidney; Z82.0 Family history of epilepsy and other diseases of the nervous system; Z82.3 Family history of stroke; Z82.49 Family history of ischemic heart disease and other diseases of the circulatory system; Z82.5 Family history of asthma and other chronic lower respiratory diseases; Z83.3 Family history of diabetes mellitus; Z68.35 Body mass index [BMI] 35.0-35.9, adult; Z79.4 Long term (current) use of insulin; Z90.49 Acquired absence of other specified parts of digestive tract
CPT/HCPCS: 36415; 49083; 71045; 74176; 76770; 80048; 80053; 81001; 82550; 82728; 82948; 83540; 83550; 83690; 83735; 83880; 84100; 84484; 84550; 85025; 85610; 85730; 87071; 87205; 89051; 93005; 94640; 99291; C1729; G0378; J1644; J1815; J1940; J7070; P9046

== ENCOUNTER → 2020-10-13 | Outpatient (CLI) | payer OTHER, MEDICARE ==
[~2020-10-13] MED LIST changes: +ALBUMIN (HUMAN) 25% 200 ML IV SCH; +CAND16TA12 PO; -CAND16TA28 PO; +LEVO500T89 PO; -LEVO500T90 PO; -MELO-106 PO
[2020-10-13 16:37] LABS: APPEARANCE BODY FLUID BLOODY (CLEAR); COLOR,BODY FLUID RED (LT YELLOW); SPECIMENTYPE,BODY FLUID ASCITES
[2020-10-13 16:38] LABS: TOTAL VOLUME,BODY FLUID 600 mL
[2020-10-13 16:39] LABS: BODY FLUID WBC 138 /cu. mm.
[2020-10-13 16:47] LABS: BODY FLUID RBC 9400 /cu. mm.
[2020-10-13 16:53] LABS: BF LYMPHOCYTE 52 %; BF MESOTHELIAL 42 %
== END | disposition home or self-care (01) ==
LOC: RAH 07:34
PROVIDERS: ATTEND Internal Medicine Gastroenterology
DX: R18.8 Other ascites (principal); E11.22 Type 2 diabetes mellitus with diabetic chronic kidney disease; I12.9 Hypertensive chronic kidney disease with stage 1 through stage 4 chronic kidney disease, or unspecified chronic kidney disease; N18.9 Chronic kidney disease, unspecified; E03.9 Hypothyroidism, unspecified; E78.5 Hyperlipidemia, unspecified; E66.9 Obesity, unspecified; K59.00 Constipation, unspecified; F17.200 Nicotine dependence, unspecified, uncomplicated; Z79.899 Other long term (current) drug therapy; Z79.890 Hormone replacement therapy; Z79.4 Long term (current) use of insulin; Z98.890 Other specified postprocedural states; Z68.36 Body mass index [BMI] 36.0-36.9, adult
CPT/HCPCS: 49083; 87071; 87205; 89051; A4215; P9046

== ENCOUNTER → 2020-10-20 | Outpatient (CLI) | payer OTHER, MEDICARE ==
[2020-10-20 13:55] LABS: APPEARANCE BODY FLUID SLIGHTLY CLOUDY (CLEAR); COLOR,BODY FLUID YELLOW (LT YELLOW); SPECIMENTYPE,BODY FLUID ASCITES
[2020-10-20 13:56] LABS: BODY FLUID WBC 247 /cu. mm.; TOTAL VOLUME,BODY FLUID 5000 mL
[2020-10-20 13:57] LABS: BODY FLUID RBC 4325 /cu. mm.
[2020-10-20 14:40] LABS: BF LYMPHOCYTE 41 %; BF MESOTHELIAL 51 %; BF MONOCYTE 8 %
== END | disposition home or self-care (01) ==
LOC: RAH 08:09
PROVIDERS: ATTEND Internal Medicine Gastroenterology
DX: R18.8 Other ascites (principal); E11.22 Type 2 diabetes mellitus with diabetic chronic kidney disease; I12.9 Hypertensive chronic kidney disease with stage 1 through stage 4 chronic kidney disease, or unspecified chronic kidney disease; N18.9 Chronic kidney disease, unspecified; E66.9 Obesity, unspecified; D64.9 Anemia, unspecified; F17.200 Nicotine dependence, unspecified, uncomplicated; E78.5 Hyperlipidemia, unspecified; E03.9 Hypothyroidism, unspecified; Z79.4 Long term (current) use of insulin; Z79.899 Other long term (current) drug therapy; Z90.49 Acquired absence of other specified parts of digestive tract; Z98.890 Other specified postprocedural states; Z79.890 Hormone replacement therapy; Z68.36 Body mass index [BMI] 36.0-36.9, adult
CPT/HCPCS: 49083; 87071; 87205; 89051; A4215; P9046; 96365

== ENCOUNTER → 2020-10-27 | Outpatient (CLI) | payer OTHER, MEDICARE ==
[2020-10-27 16:27] LABS: APPEARANCE BODY FLUID SLIGHTLY CLOUDY (CLEAR); COLOR,BODY FLUID YELLOW (LT YELLOW); SPECIMENTYPE,BODY FLUID ASCITES; TOTAL VOLUME,BODY FLUID 3500 mL
[2020-10-27 16:28] LABS: BODY FLUID RBC 1000 /cu. mm.; BODY FLUID WBC 155 /cu. mm.
[2020-10-27 16:31] LABS: BF LYMPHOCYTE 45 %; BF MESOTHELIAL 11 %; BF OTHER CELLS 1
== END | disposition home or self-care (01) ==
LOC: RAH 08:03
PROVIDERS: ATTEND Internal Medicine Gastroenterology
DX: R18.8 Other ascites (principal); E11.22 Type 2 diabetes mellitus with diabetic chronic kidney disease; I12.9 Hypertensive chronic kidney disease with stage 1 through stage 4 chronic kidney disease, or unspecified chronic kidney disease; N18.9 Chronic kidney disease, unspecified; E03.9 Hypothyroidism, unspecified; E78.5 Hyperlipidemia, unspecified; E66.9 Obesity, unspecified; F17.200 Nicotine dependence, unspecified, uncomplicated; Z79.899 Other long term (current) drug therapy; Z98.890 Other specified postprocedural states; Z79.890 Hormone replacement therapy; Z79.4 Long term (current) use of insulin; Z68.36 Body mass index [BMI] 36.0-36.9, adult; Z90.49 Acquired absence of other specified parts of digestive tract; Z79.01 Long term (current) use of anticoagulants
CPT/HCPCS: 49083; 87071; 87205; 89051; A4215

== ENCOUNTER → 2020-11-03 | Outpatient (CLI) | payer OTHER, MEDICARE ==
[2020-11-03 13:19] LABS: SPECIMENTYPE,BODY FLUID ASCITES
[2020-11-03 13:20] LABS: APPEARANCE BODY FLUID CLOUDY (CLEAR); COLOR,BODY FLUID YELLOW (LT YELLOW); TOTAL VOLUME,BODY FLUID 3400 mL
[2020-11-03 13:23] LABS: BODY FLUID RBC 700 /cu. mm.; BODY FLUID WBC 290 /cu. mm.
[2020-11-03 13:27] LABS: BF LYMPHOCYTE 53 %; BF MESOTHELIAL 7 %; BF MONOCYTE 10 %
== END | disposition home or self-care (01) ==
LOC: RAH 07:52
PROVIDERS: ATTEND Internal Medicine Gastroenterology
DX: R18.8 Other ascites (principal); E11.22 Type 2 diabetes mellitus with diabetic chronic kidney disease; I12.9 Hypertensive chronic kidney disease with stage 1 through stage 4 chronic kidney disease, or unspecified chronic kidney disease; N18.9 Chronic kidney disease, unspecified; E03.9 Hypothyroidism, unspecified; E78.5 Hyperlipidemia, unspecified; E66.9 Obesity, unspecified; F17.200 Nicotine dependence, unspecified, uncomplicated; Z79.899 Other long term (current) drug therapy; Z79.890 Hormone replacement therapy; Z79.4 Long term (current) use of insulin; Z98.890 Other specified postprocedural states; Z68.36 Body mass index [BMI] 36.0-36.9, adult
CPT/HCPCS: 49083; 87071; 87205; 89051; A4215; P9046

== ENCOUNTER → 2020-11-10 | Outpatient (CLI) | payer OTHER, MEDICARE ==
[~2020-11-10] MED LIST changes: +SODIUM BICARB 50MEQ 50ML VIAL 50 ML ONE
[2020-11-10 09:40] LABS: BASOPHILS % (AUTO) 0.6 % (0.0-5.0); EOSINOPHILS % (AUTO) 3.5 % (0.0-8.0); HEMATOCRIT 30.3 % (36-48); LYMPHOCYTES % (AUTO) 23.5 % (21.0-51.0); MEAN CORPUSCULAR HEMOGLOBIN 30.4 pg (27.0-33.0); MEAN CORPUSCULAR HGB CONC 31.4 g/dL (32.0-36.0); MEAN CORPUSCULAR VOLUME 96.8 fL (79-99); MONOCYTES % (AUTO) 6.9 % (3.0-13.0); NEUTROPHILS % (AUTO) 65.3 % (40.0-77.0); PLATELET COUNT (AUTO) 124 K/uL (130-400); RED BLOOD CELL COUNT(AUTO) 3.13 MIL/uL (4.00-5.50); RED CELL DISTRIBUTION WIDTH 14.2 % (11.0-15.5); WHITE BLOOD COUNT (AUTO) 4.8 K/uL (4.8-10.8)
[2020-11-10 09:47] LABS: INR 1.05 (0.85-1.15); PROTHROMBIN TIME 11.4 SEC (9.6-11.6)
[2020-11-10 10:01] LABS: ALBUMIN 2.7 g/dL (3.5-5.0); BILIRUBIN,TOTAL 0.5 mg/dL (0.2-1.0); CREATININE 3.7 mg/dL (0.5-1.5); POTASSIUM 5.1 mmol/L (3.5-5.1); TOTAL PROTEIN, SERUM 6.7 g/dL (6.0-8.3)
[2020-11-10 10:37] LABS: APPEARANCE BODY FLUID CLEAR (CLEAR); COLOR,BODY FLUID YELLOW (LT YELLOW); SPECIMENTYPE,BODY FLUID ASCITES
[2020-11-10 10:38] LABS: BODY FLUID RBC 262 /cu. mm.; BODY FLUID WBC 425 /cu. mm.; TOTAL VOLUME,BODY FLUID 1600 mL
[2020-11-10 11:42] LABS: BF LYMPHOCYTE 44 %; BF MESOTHELIAL 49 %
== END ==
LOC: RAH 08:00
PROVIDERS: ATTEND Internal Medicine Gastroenterology
DX: R18.8 Other ascites (principal); K59.00 Constipation, unspecified; R11.0 Nausea; D64.9 Anemia, unspecified; I12.9 Hypertensive chronic kidney disease with stage 1 through stage 4 chronic kidney disease, or unspecified chronic kidney disease; E11.22 Type 2 diabetes mellitus with diabetic chronic kidney disease; N18.9 Chronic kidney disease, unspecified; D63.1 Anemia in chronic kidney disease; D12.6 Benign neoplasm of colon, unspecified; R93.2 Abnormal findings on diagnostic imaging of liver and biliary tract; E03.9 Hypothyroidism, unspecified; E78.5 Hyperlipidemia, unspecified; Z90.49 Acquired absence of other specified parts of digestive tract; Z79.899 Other long term (current) drug therapy
CPT/HCPCS: 36415; 49083; 80053; 85025; 85610; 87071; 87205; 89051; A4215; J3490

== ENCOUNTER → 2020-11-17 | Outpatient (CLI) | payer OTHER, MEDICARE ==
[~2020-11-17] MED LIST changes: -SODIUM BICARB 50MEQ 50ML VIAL 50 ML ONE
== END | disposition home or self-care (01) ==
LOC: RAH 08:23
PROVIDERS: ATTEND Internal Medicine Gastroenterology
DX: R18.8 Other ascites (principal)
CPT/HCPCS: 76705; P9046

== ENCOUNTER → 2020-11-24 | Outpatient (CLI) | payer OTHER, MEDICARE ==
[2020-11-24 11:20] LABS: APPEARANCE BODY FLUID CLEAR (CLEAR); COLOR,BODY FLUID YELLOW (LT YELLOW); SPECIMENTYPE,BODY FLUID ASCITES
[2020-11-24 11:21] LABS: BODY FLUID RBC 755 /cu. mm.; BODY FLUID WBC 118 /cu. mm.; TOTAL VOLUME,BODY FLUID 3100 mL
[2020-11-24 11:28] LABS: BF LYMPHOCYTE 64 %; BF MESOTHELIAL 30 %
== END ==
LOC: RAH 07:39
PROVIDERS: ATTEND Internal Medicine Gastroenterology
DX: R18.8 Other ascites (principal)
CPT/HCPCS: 49083; 87071; 87205; 89051; A4215; P9046

== ENCOUNTER → 2020-12-01 | Outpatient (CLI) | payer OTHER, MEDICARE ==
[2020-12-01 10:07] LABS: BASOPHILS % (AUTO) 0.4 % (0.0-5.0); HEMATOCRIT 30.7 % (36-48); LYMPHOCYTES % (AUTO) 21.7 % (21.0-51.0); MEAN CORPUSCULAR HEMOGLOBIN 30.4 pg (27.0-33.0); MEAN CORPUSCULAR HGB CONC 31.3 g/dL (32.0-36.0); MEAN CORPUSCULAR VOLUME 97.2 fL (79-99); MONOCYTES % (AUTO) 7.1 % (3.0-13.0); NEUTROPHILS % (AUTO) 68.6 % (40.0-77.0); PLATELET COUNT (AUTO) 116 K/uL (130-400); RED BLOOD CELL COUNT(AUTO) 3.16 MIL/uL (4.00-5.50); RED CELL DISTRIBUTION WIDTH 13.9 % (11.0-15.5); WHITE BLOOD COUNT (AUTO) 5.4 K/uL (4.8-10.8)
[2020-12-01 10:26] LABS: CREATININE 3.9 mg/dL (0.5-1.5); POTASSIUM 5.3 mmol/L (3.5-5.1)
[2020-12-01 10:27] LABS: ALBUMIN 2.7 g/dL (3.5-5.0); BILIRUBIN,TOTAL 0.3 mg/dL (0.2-1.0); TOTAL PROTEIN, SERUM 6.8 g/dL (6.0-8.3)
[2020-12-01 11:54] LABS: APPEARANCE BODY FLUID CLEAR (CLEAR); BODY FLUID WBC 313 /cu. mm.; COLOR,BODY FLUID YELLOW (LT YELLOW); SPECIMENTYPE,BODY FLUID ASCITES; TOTAL VOLUME,BODY FLUID 3300 mL
[2020-12-01 11:55] LABS: BODY FLUID RBC 576 /cu. mm.
[2020-12-01 12:06] LABS: BF LYMPHOCYTE 45 %; BF MESOTHELIAL 31 %; BF MONOCYTE 12 %
== END | disposition home or self-care (01) ==
LOC: RAH 07:36
PROVIDERS: ATTEND Internal Medicine Gastroenterology
DX: R18.8 Other ascites (principal); I12.9 Hypertensive chronic kidney disease with stage 1 through stage 4 chronic kidney disease, or unspecified chronic kidney disease; E11.22 Type 2 diabetes mellitus with diabetic chronic kidney disease; N18.9 Chronic kidney disease, unspecified; D63.1 Anemia in chronic kidney disease; E03.9 Hypothyroidism, unspecified; E78.5 Hyperlipidemia, unspecified; Z79.899 Other long term (current) drug therapy; Z90.49 Acquired absence of other specified parts of digestive tract
CPT/HCPCS: 36415; 49083; 80053; 85025; 87071; 87205; 89051; A4215; P9046

== ENCOUNTER → 2020-12-08 | Outpatient (CLI) | payer OTHER, MEDICARE ==
[~2020-12-08] MED LIST changes: -ALBUMIN (HUMAN) 25% 200 ML IV SCH
[2020-12-08 14:02] LABS: APPEARANCE BODY FLUID CLEAR (CLEAR); BODY FLUID RBC 433 /cu. mm.; BODY FLUID WBC 297 /cu. mm.; COLOR,BODY FLUID YELLOW (LT YELLOW); SPECIMENTYPE,BODY FLUID ASCITES; TOTAL VOLUME,BODY FLUID 3200 mL
[2020-12-08 14:13] LABS: BF LYMPHOCYTE 33 %; BF MESOTHELIAL 45 %; BF MONOCYTE 15 %
== END | disposition home or self-care (01) ==
LOC: RAH 07:22
PROVIDERS: ATTEND Internal Medicine Gastroenterology
DX: R18.8 Other ascites (principal); I12.9 Hypertensive chronic kidney disease with stage 1 through stage 4 chronic kidney disease, or unspecified chronic kidney disease; E11.22 Type 2 diabetes mellitus with diabetic chronic kidney disease; N18.9 Chronic kidney disease, unspecified; D63.1 Anemia in chronic kidney disease; E03.9 Hypothyroidism, unspecified; E78.5 Hyperlipidemia, unspecified; Z79.899 Other long term (current) drug therapy; Z79.84 Long term (current) use of oral hypoglycemic drugs; Z98.890 Other specified postprocedural states
CPT/HCPCS: 49083; 87071; 87205; 89051; A4215

== ENCOUNTER → 2020-12-15 | Outpatient (CLI) | payer OTHER, MEDICARE ==
[~2020-12-15] MED LIST changes: +SODIUM BICARB 50MEQ 50ML VIAL 50 ML ONE
[2020-12-15 08:31] LABS: BASOPHILS % (AUTO) 0.3 % (0.0-5.0); EOSINOPHILS % (AUTO) 2.8 % (0.0-8.0); HEMATOCRIT 31.4 % (36-48); LYMPHOCYTES % (AUTO) 18.1 % (21.0-51.0); MEAN CORPUSCULAR HEMOGLOBIN 30.3 pg (27.0-33.0); MEAN CORPUSCULAR HGB CONC 31.2 g/dL (32.0-36.0); MEAN CORPUSCULAR VOLUME 97.2 fL (79-99); MONOCYTES % (AUTO) 6.4 % (3.0-13.0); NEUTROPHILS % (AUTO) 71.9 % (40.0-77.0); PLATELET COUNT (AUTO) 118 K/uL (130-400); RED BLOOD CELL COUNT(AUTO) 3.23 MIL/uL (4.00-5.50); RED CELL DISTRIBUTION WIDTH 13.8 % (11.0-15.5); WHITE BLOOD COUNT (AUTO) 5.8 K/uL (4.8-10.8)
[2020-12-15 08:42] LABS: INR 1.04 (0.85-1.15); PROTHROMBIN TIME 11.3 SEC (9.6-11.6)
[2020-12-15 08:44] LABS: ALBUMIN 2.5 g/dL (3.5-5.0); BILIRUBIN,TOTAL 0.4 mg/dL (0.2-1.0); CREATININE 3.6 mg/dL (0.5-1.5); POTASSIUM 5.2 mmol/L (3.5-5.1); TOTAL PROTEIN, SERUM 6.5 g/dL (6.0-8.3)
[2020-12-15 12:47] LABS: APPEARANCE BODY FLUID SLIGHTLY CLOUDY (CLEAR); BODY FLUID RBC 155 /cu. mm.; BODY FLUID WBC 340 /cu. mm.; COLOR,BODY FLUID YELLOW (LT YELLOW); SPECIMENTYPE,BODY FLUID ASCITES; TOTAL VOLUME,BODY FLUID 3700 mL
[2020-12-15 13:10] LABS: BF LYMPHOCYTE 61 %; BF MESOTHELIAL 16 %; BF MONOCYTE 10 %
== END | disposition home or self-care (01) ==
LOC: RAH 07:38
PROVIDERS: ATTEND Internal Medicine Gastroenterology
DX: R18.8 Other ascites (principal); I12.9 Hypertensive chronic kidney disease with stage 1 through stage 4 chronic kidney disease, or unspecified chronic kidney disease; E11.22 Type 2 diabetes mellitus with diabetic chronic kidney disease; N18.9 Chronic kidney disease, unspecified; D63.1 Anemia in chronic kidney disease; E03.9 Hypothyroidism, unspecified; E78.5 Hyperlipidemia, unspecified; Z79.899 Other long term (current) drug therapy; Z98.890 Other specified postprocedural states; Z79.01 Long term (current) use of anticoagulants
CPT/HCPCS: 36415; 49083; 80053; 85025; 85610; 87071; 87205; 89051; A4215; J3490

== ENCOUNTER → 2020-12-22 | Outpatient (CLI) | payer OTHER, MEDICARE ==
[~2020-12-22] MED LIST changes: -SODIUM BICARB 50MEQ 50ML VIAL 50 ML ONE
[2020-12-22 14:56] LABS: APPEARANCE BODY FLUID SLIGHTLY CLOUDY (CLEAR); BF LYMPHOCYTE 41 %; BF MESOTHELIAL 24 %; BF MONOCYTE 2 %; COLOR,BODY FLUID LT YELLOW (LT YELLOW); SPECIMENTYPE,BODY FLUID ASCITES; TOTAL VOLUME,BODY FLUID 2100 mL
[2020-12-22 14:57] LABS: BODY FLUID WBC 245 /cu. mm.
[2020-12-22 14:58] LABS: BODY FLUID RBC 349 /cu. mm.
== END | disposition home or self-care (01) ==
LOC: RAH 07:35
PROVIDERS: ATTEND Internal Medicine Gastroenterology
DX: R18.8 Other ascites (principal)
CPT/HCPCS: 49083; 87071; 87205; 89051; A4215

== ENCOUNTER → 2020-12-29 | Outpatient (CLI) | payer OTHER, MEDICARE ==
[~2020-12-29] MED LIST changes: +ALBUMIN (HUMAN) 25% 200 ML IV SCH
== END | disposition home or self-care (01) ==
LOC: RAH 07:42
PROVIDERS: ATTEND Internal Medicine Gastroenterology
DX: R18.8 Other ascites (principal)
CPT/HCPCS: 76705; P9046

== ENCOUNTER → 2021-01-05 | Outpatient (CLI) | payer OTHER, MEDICARE ==
[~2021-01-05] MED LIST changes: -ALBUMIN (HUMAN) 25% 200 ML IV SCH
[2021-01-05 13:32] LABS: APPEARANCE BODY FLUID SLIGHTLY CLOUDY (CLEAR); COLOR,BODY FLUID YELLOW (LT YELLOW); SPECIMENTYPE,BODY FLUID ASCITES; TOTAL VOLUME,BODY FLUID 3000 mL
[2021-01-05 13:37] LABS: BODY FLUID WBC 262 /cu. mm.
[2021-01-05 13:38] LABS: BODY FLUID RBC 365 /cu. mm.
[2021-01-05 13:55] LABS: BF LYMPHOCYTE 37 %; BF MESOTHELIAL 57 %
== END | disposition home or self-care (01) ==
LOC: RAH 07:52
PROVIDERS: ATTEND Internal Medicine Gastroenterology
DX: R18.8 Other ascites (principal); E11.22 Type 2 diabetes mellitus with diabetic chronic kidney disease; I12.9 Hypertensive chronic kidney disease with stage 1 through stage 4 chronic kidney disease, or unspecified chronic kidney disease; N18.9 Chronic kidney disease, unspecified; E66.9 Obesity, unspecified; D64.9 Anemia, unspecified; E03.9 Hypothyroidism, unspecified; E78.5 Hyperlipidemia, unspecified; K59.00 Constipation, unspecified; Z79.4 Long term (current) use of insulin; Z79.899 Other long term (current) drug therapy; Z79.890 Hormone replacement therapy; Z90.49 Acquired absence of other specified parts of digestive tract; Z86.010 Personal history of colon polyps
CPT/HCPCS: 49083; 87071; 87205; 89051; A4215

== ENCOUNTER → 2021-01-12 | Outpatient (CLI) | payer OTHER, MEDICARE ==
[~2021-01-12] MED LIST changes: +ALBUMIN (HUMAN) 25% 200 ML IV SCH
== END | disposition home or self-care (01) ==
LOC: RAH 08:12
PROVIDERS: ATTEND Internal Medicine Gastroenterology
DX: R18.8 Other ascites (principal); R14.0 Abdominal distension (gaseous)
CPT/HCPCS: 76705; P9046

== ENCOUNTER → 2021-01-19 | Outpatient (CLI) | payer OTHER, MEDICARE ==
[~2021-01-19] MED LIST changes: -ALBUMIN (HUMAN) 25% 200 ML IV SCH
[2021-01-19 08:47] LABS: BASOPHILS % (AUTO) 0.6 % (0.0-5.0); EOSINOPHILS % (AUTO) 3.2 % (0.0-8.0); HEMATOCRIT 29.2 % (36-48); LYMPHOCYTES % (AUTO) 27.2 % (21.0-51.0); MEAN CORPUSCULAR HEMOGLOBIN 30.5 pg (27.0-33.0); MEAN CORPUSCULAR HGB CONC 32.2 g/dL (32.0-36.0); MEAN CORPUSCULAR VOLUME 94.8 fL (79-99); MONOCYTES % (AUTO) 9.7 % (3.0-13.0); PLATELET COUNT (AUTO) 109 K/uL (130-400); RED BLOOD CELL COUNT(AUTO) 3.08 MIL/uL (4.00-5.50); RED CELL DISTRIBUTION WIDTH 13.9 % (11.0-15.5); WHITE BLOOD COUNT (AUTO) 3.5 K/uL (4.8-10.8)
[2021-01-19 08:57] LABS: INR 1.05 (0.85-1.15); PROTHROMBIN TIME 11.4 SEC (9.6-11.6)
[2021-01-19 09:04] LABS: ALBUMIN 2.7 g/dL (3.5-5.0); BILIRUBIN,TOTAL 0.5 mg/dL (0.2-1.0); CREATININE 3.7 mg/dL (0.5-1.5); POTASSIUM 4.7 mmol/L (3.5-5.1); TOTAL PROTEIN, SERUM 6.7 g/dL (6.0-8.3)
[2021-01-19 12:50] LABS: APPEARANCE BODY FLUID CLEAR (CLEAR); BODY FLUID WBC 275 /cu. mm.; COLOR,BODY FLUID YELLOW (LT YELLOW); SPECIMENTYPE,BODY FLUID ASCITES; TOTAL VOLUME,BODY FLUID 3500 mL
[2021-01-19 12:51] LABS: BODY FLUID RBC 200 /cu. mm.
[2021-01-19 13:08] LABS: BF LYMPHOCYTE 30 %; BF MESOTHELIAL 68 %
== END | disposition home or self-care (01) ==
LOC: RAH 07:53
PROVIDERS: ATTEND Internal Medicine Gastroenterology
DX: R18.8 Other ascites (principal); E11.22 Type 2 diabetes mellitus with diabetic chronic kidney disease; I12.9 Hypertensive chronic kidney disease with stage 1 through stage 4 chronic kidney disease, or unspecified chronic kidney disease; N18.9 Chronic kidney disease, unspecified; E66.9 Obesity, unspecified; D64.9 Anemia, unspecified; E03.9 Hypothyroidism, unspecified; E78.5 Hyperlipidemia, unspecified; K59.00 Constipation, unspecified; Z79.4 Long term (current) use of insulin; Z79.899 Other long term (current) drug therapy; Z86.010 Personal history of colon polyps; Z90.49 Acquired absence of other specified parts of digestive tract; Z98.890 Other specified postprocedural states
CPT/HCPCS: 36415; 49083; 80053; 85025; 85610; 87071; 87205; 89051; A4215; P9047

== ENCOUNTER → 2021-01-26 | Outpatient (CLI) | payer OTHER, MEDICARE ==
[~2021-01-26] MED LIST changes: +ALBUMIN (HUMAN) 25% 200 ML IV ONE; +ALBUMIN (HUMAN) 25% 200 ML IV SCH
[2021-01-26 10:18] LABS: BF LYMPHOCYTE 20 %; BF MESOTHELIAL 72 %; BF MONOCYTE 3 %
[2021-01-26 10:26] LABS: APPEARANCE BODY FLUID CLEAR (CLEAR); COLOR,BODY FLUID YELLOW (LT YELLOW); SPECIMENTYPE,BODY FLUID ASCITES; TOTAL VOLUME,BODY FLUID 3600 mL
[2021-01-26 10:27] LABS: BODY FLUID RBC 242 /cu. mm.; BODY FLUID WBC 270 /cu. mm.
== END | disposition home or self-care (01) ==
LOC: RAH 07:45
PROVIDERS: ATTEND Internal Medicine Gastroenterology
DX: R18.8 Other ascites (principal); E11.22 Type 2 diabetes mellitus with diabetic chronic kidney disease; I12.9 Hypertensive chronic kidney disease with stage 1 through stage 4 chronic kidney disease, or unspecified chronic kidney disease; N18.9 Chronic kidney disease, unspecified; E66.9 Obesity, unspecified; D64.9 Anemia, unspecified; E03.9 Hypothyroidism, unspecified; E78.5 Hyperlipidemia, unspecified; Z79.4 Long term (current) use of insulin; Z79.899 Other long term (current) drug therapy; Z86.010 Personal history of colon polyps; Z90.49 Acquired absence of other specified parts of digestive tract; Z98.890 Other specified postprocedural states
CPT/HCPCS: 49083; 87071; 87205; 88112; 88305; 89051; C1729; P9046; P9047

== ENCOUNTER → 2021-02-02 | Outpatient (CLI) | payer MEDICARE ==
[~2021-02-02] MED LIST changes: -ALBUMIN (HUMAN) 25% 200 ML IV ONE
[2021-02-02 15:50] LABS: APPEARANCE BODY FLUID CLEAR (CLEAR); COLOR,BODY FLUID YELLOW (LT YELLOW); SPECIMENTYPE,BODY FLUID ASCITES; TOTAL VOLUME,BODY FLUID 3500 mL
[2021-02-02 15:51] LABS: BODY FLUID RBC 63 /cu. mm.; BODY FLUID WBC 48 /cu. mm.
[2021-02-02 16:12] LABS: BF LYMPHOCYTE 41 %; BF MESOTHELIAL 38 %; BF OTHER CELLS 6
== END | disposition home or self-care (01) ==
LOC: RAH 07:48
PROVIDERS: ATTEND Internal Medicine Gastroenterology
DX: R18.8 Other ascites (principal); E11.22 Type 2 diabetes mellitus with diabetic chronic kidney disease; I12.9 Hypertensive chronic kidney disease with stage 1 through stage 4 chronic kidney disease, or unspecified chronic kidney disease; N18.9 Chronic kidney disease, unspecified; E66.9 Obesity, unspecified; D64.9 Anemia, unspecified; E03.9 Hypothyroidism, unspecified; E78.5 Hyperlipidemia, unspecified; Z79.4 Long term (current) use of insulin; Z79.899 Other long term (current) drug therapy; Z86.010 Personal history of colon polyps; Z90.49 Acquired absence of other specified parts of digestive tract; Z98.890 Other specified postprocedural states; Z68.36 Body mass index [BMI] 36.0-36.9, adult
CPT/HCPCS: 49083; 87071; 87205; 89051; C1729; P9046

== ENCOUNTER → 2021-02-16 | Outpatient (CLI) | payer OTHER, MEDICARE ==
[~2021-02-16] MED LIST changes: -ALBUMIN (HUMAN) 25% 200 ML IV SCH
== END | disposition home or self-care (01) ==
LOC: RAH 08:14
PROVIDERS: ATTEND Internal Medicine Gastroenterology
DX: R18.8 Other ascites (principal)
CPT/HCPCS: 76705

== ENCOUNTER → 2021-02-23 | Outpatient (CLI) | payer OTHER, MEDICARE ==
[~2021-02-23] MED LIST changes: +ALBUMIN (HUMAN) 25% 200 ML IV SCH
[2021-02-23 08:25] LABS: BASOPHILS % (AUTO) 0.6 % (0.0-5.0); EOSINOPHILS % (AUTO) 2.8 % (0.0-8.0); HEMATOCRIT 30.9 % (36-48); LYMPHOCYTES % (AUTO) 22.3 % (21.0-51.0); MEAN CORPUSCULAR HGB CONC 31.4 g/dL (32.0-36.0); MEAN CORPUSCULAR VOLUME 95.7 fL (79-99); MONOCYTES % (AUTO) 6.2 % (3.0-13.0); NEUTROPHILS % (AUTO) 67.9 % (40.0-77.0); PLATELET COUNT (AUTO) 123 K/uL (130-400); RED BLOOD CELL COUNT(AUTO) 3.23 MIL/uL (4.00-5.50); RED CELL DISTRIBUTION WIDTH 13.6 % (11.0-15.5); WHITE BLOOD COUNT (AUTO) 5.3 K/uL (4.8-10.8)
[2021-02-23 08:34] LABS: INR 1.04 (0.85-1.15); PROTHROMBIN TIME 11.3 SEC (9.6-11.6)
[2021-02-23 08:35] LABS: PARTIAL THROMBOPLASTIN TIME 33.3 SEC (26.3-35.5)
[2021-02-23 08:38] LABS: ALBUMIN 2.8 g/dL (3.5-5.0); BILIRUBIN,TOTAL 0.3 mg/dL (0.2-1.0); CREATININE 3.6 mg/dL (0.5-1.5); POTASSIUM 5.1 mmol/L (3.5-5.1); TOTAL PROTEIN, SERUM 6.8 g/dL (6.0-8.3)
[2021-02-23 12:00] LABS: SPECIMENTYPE,BODY FLUID ASCITES
[2021-02-23 12:01] LABS: APPEARANCE BODY FLUID CLOUDY (CLEAR); BODY FLUID WBC 473 /cu. mm.; COLOR,BODY FLUID RED (LT YELLOW); TOTAL VOLUME,BODY FLUID 3000 mL
[2021-02-23 12:02] LABS: BODY FLUID RBC 6375 /cu. mm.
[2021-02-23 13:32] LABS: BF LYMPHOCYTE 66 %; BF MESOTHELIAL 22 %; BF MONOCYTE 8 %
== END | disposition home or self-care (01) ==
LOC: RAH 07:52
PROVIDERS: ATTEND Internal Medicine Gastroenterology
DX: R18.8 Other ascites (principal); E11.22 Type 2 diabetes mellitus with diabetic chronic kidney disease; I12.9 Hypertensive chronic kidney disease with stage 1 through stage 4 chronic kidney disease, or unspecified chronic kidney disease; N18.9 Chronic kidney disease, unspecified; E03.9 Hypothyroidism, unspecified; E78.5 Hyperlipidemia, unspecified; E66.9 Obesity, unspecified; K59.00 Constipation, unspecified; D64.9 Anemia, unspecified; Z90.49 Acquired absence of other specified parts of digestive tract; Z82.49 Family history of ischemic heart disease and other diseases of the circulatory system; Z79.4 Long term (current) use of insulin; Z79.899 Other long term (current) drug therapy; Z86.010 Personal history of colon polyps; Z68.36 Body mass index [BMI] 36.0-36.9, adult
CPT/HCPCS: 36415; 49083; 80053; 85025; 85610; 85730; 87071; 87205; 89051; C1729

== ENCOUNTER → 2021-05-24 | Outpatient (CLI) | payer MEDICARE ==
[~2021-05-24] MED LIST changes: -CAND16TA12 PO; +CAND16TA28 PO; -LEVO500T89 PO; +LEVO500T90 PO
== END | disposition home or self-care (01) ==
LOC: RAH 08:02
PROVIDERS: ATTEND Internal Medicine Gastroenterology
DX: R18.8 Other ascites (principal)
CPT/HCPCS: 76705; P9046

== ENCOUNTER → 2021-05-31 | Outpatient (CLI) | payer MEDICARE ==
[~2021-05-31] MED LIST changes: -ALBUMIN (HUMAN) 25% 200 ML IV SCH
[2021-05-31 13:06] LABS: APPEARANCE BODY FLUID CLEAR (CLEAR); COLOR,BODY FLUID YELLOW (LT YELLOW); SPECIMENTYPE,BODY FLUID ASCITES; TOTAL VOLUME,BODY FLUID 3800 mL
[2021-05-31 13:07] LABS: BODY FLUID RBC 244 /cu. mm.; BODY FLUID WBC 434 /cu. mm.
[2021-05-31 13:49] LABS: BF LYMPHOCYTE 28 %; BF MESOTHELIAL 66 %; BF MONOCYTE 2 %
== END | disposition home or self-care (01) ==
LOC: RAH 09:02
PROVIDERS: ATTEND Internal Medicine Gastroenterology
DX: R18.8 Other ascites (principal); E11.22 Type 2 diabetes mellitus with diabetic chronic kidney disease; I12.9 Hypertensive chronic kidney disease with stage 1 through stage 4 chronic kidney disease, or unspecified chronic kidney disease; N18.9 Chronic kidney disease, unspecified; E03.9 Hypothyroidism, unspecified; E78.5 Hyperlipidemia, unspecified; E66.9 Obesity, unspecified; Z90.49 Acquired absence of other specified parts of digestive tract; D64.9 Anemia, unspecified; Z79.01 Long term (current) use of anticoagulants; Z84.1 Family history of disorders of kidney and ureter; Z82.49 Family history of ischemic heart disease and other diseases of the circulatory system; Z86.010 Personal history of colon polyps; Z68.35 Body mass index [BMI] 35.0-35.9, adult
CPT/HCPCS: 49083; 87071; 87205; 89051; C1729

== ENCOUNTER → 2021-06-14 | Outpatient (CLI) | payer MEDICARE ==
[~2021-06-14] MED LIST changes: +ALBUMIN (HUMAN) 25% 200 ML IV SCH
[2021-06-14 08:58] LABS: BASOPHILS % (AUTO) 0.3 % (0.0-5.0); EOSINOPHILS % (AUTO) 3.1 % (0.0-8.0); HEMATOCRIT 28.2 % (36-48); LYMPHOCYTES % (AUTO) 17.4 % (21.0-51.0); MEAN CORPUSCULAR HEMOGLOBIN 29.4 pg (27.0-33.0); MEAN CORPUSCULAR HGB CONC 31.2 g/dL (32.0-36.0); MEAN CORPUSCULAR VOLUME 94.3 fL (79-99); MONOCYTES % (AUTO) 5.9 % (3.0-13.0); PLATELET COUNT (AUTO) 122 K/uL (130-400); RED BLOOD CELL COUNT(AUTO) 2.99 MIL/uL (4.00-5.50); WHITE BLOOD COUNT (AUTO) 5.8 K/uL (4.8-10.8)
[2021-06-14 09:10] LABS: INR 1.05 (0.85-1.15); PROTHROMBIN TIME 11.4 SEC (9.6-11.6)
[2021-06-14 09:12] LABS: ALBUMIN 2.8 g/dL (3.5-5.0); BILIRUBIN,TOTAL 0.4 mg/dL (0.2-1.0); CREATININE 4.4 mg/dL (0.5-1.5); POTASSIUM 4.8 mmol/L (3.5-5.1); TOTAL PROTEIN, SERUM 6.8 g/dL (6.0-8.3)
[2021-06-14 14:40] LABS: SPECIMENTYPE,BODY FLUID ASCITES
[2021-06-14 14:41] LABS: APPEARANCE BODY FLUID SLIGHTLY CLOUDY (CLEAR); COLOR,BODY FLUID YELLOW (LT YELLOW); TOTAL VOLUME,BODY FLUID 3200 mL
[2021-06-14 14:42] LABS: BODY FLUID RBC 100 /cu. mm.; BODY FLUID WBC 243 /cu. mm.
[2021-06-14 14:44] LABS: BF LYMPHOCYTE 47 %; BF MESOTHELIAL 8 %; BF MONOCYTE 17 %
== END | disposition home or self-care (01) ==
LOC: RAH 08:09
PROVIDERS: ATTEND Internal Medicine Gastroenterology
DX: R18.8 Other ascites (principal); Z79.01 Long term (current) use of anticoagulants; E11.22 Type 2 diabetes mellitus with diabetic chronic kidney disease; I12.9 Hypertensive chronic kidney disease with stage 1 through stage 4 chronic kidney disease, or unspecified chronic kidney disease; N18.9 Chronic kidney disease, unspecified; E03.9 Hypothyroidism, unspecified; E78.5 Hyperlipidemia, unspecified; E66.9 Obesity, unspecified; D64.9 Anemia, unspecified; Z90.49 Acquired absence of other specified parts of digestive tract; Z98.890 Other specified postprocedural states; Z84.1 Family history of disorders of kidney and ureter; Z82.49 Family history of ischemic heart disease and other diseases of the circulatory system; Z68.35 Body mass index [BMI] 35.0-35.9, adult; Z86.010 Personal history of colon polyps
CPT/HCPCS: 36415; 49083; 80053; 85025; 85610; 87071; 87205; 89051; C1729; P9046

== ENCOUNTER → 2021-07-12 | Outpatient (CLI) | payer MEDICARE ==
[~2021-07-12] MED LIST changes: +ACET-66 PO; -ALBUMIN (HUMAN) 25% 200 ML IV SCH; +OSEL75 PO
[2021-07-12 12:37] LABS: ALBUMIN,BODY FLUID 1.6 g/dL
[2021-07-12 13:05] LABS: APPEARANCE BODY FLUID CLEAR (CLEAR); COLOR,BODY FLUID YELLOW (LT YELLOW); SPECIMENTYPE,BODY FLUID ASCITES
[2021-07-12 13:06] LABS: BODY FLUID RBC 189 /cu. mm.; BODY FLUID WBC 488 /cu. mm.; TOTAL VOLUME,BODY FLUID 3000 mL
[2021-07-12 13:40] LABS: BF LYMPHOCYTE 35 %; BF MESOTHELIAL 62 %; BF MONOCYTE 1 %
== END | disposition home or self-care (01) ==
LOC: RAH 08:30
PROVIDERS: ATTEND Internal Medicine Gastroenterology
DX: R18.8 Other ascites (principal); E11.22 Type 2 diabetes mellitus with diabetic chronic kidney disease; I12.9 Hypertensive chronic kidney disease with stage 1 through stage 4 chronic kidney disease, or unspecified chronic kidney disease; N18.9 Chronic kidney disease, unspecified; E03.9 Hypothyroidism, unspecified; E78.5 Hyperlipidemia, unspecified; E66.9 Obesity, unspecified; D64.9 Anemia, unspecified; Z90.49 Acquired absence of other specified parts of digestive tract; Z98.890 Other specified postprocedural states; Z84.1 Family history of disorders of kidney and ureter; Z82.49 Family history of ischemic heart disease and other diseases of the circulatory system; Z68.35 Body mass index [BMI] 35.0-35.9, adult; Z86.010 Personal history of colon polyps; Z79.01 Long term (current) use of anticoagulants
CPT/HCPCS: 49083; 82042; 84157; 87071; 87205; 88112; 88305; 89051; C1729

== ENCOUNTER → 2021-07-26 | Outpatient (CLI) | payer MEDICARE ==
[~2021-07-26] MED LIST changes: +LIDOCAINE HCL MPF 1% 5ML VIAL ONE
[2021-07-26 09:07] LABS: MEAN CORPUSCULAR HEMOGLOBIN 29.1 pg (27.0-33.0); MEAN CORPUSCULAR HGB CONC 32.1 g/dL (32.0-36.0); MEAN CORPUSCULAR VOLUME 90.6 fL (79-99); PLATELET COUNT (AUTO) 132 K/uL (130-400); RED BLOOD CELL COUNT(AUTO) 3.09 MIL/uL (4.00-5.50); RED CELL DISTRIBUTION WIDTH 13.9 % (11.0-15.5); WHITE BLOOD COUNT (AUTO) 5.3 K/uL (4.8-10.8)
[2021-07-26 09:23] LABS: INR 1.07 (0.85-1.15); PROTHROMBIN TIME 11.6 SEC (9.6-11.6)
[2021-07-26 09:26] LABS: ALBUMIN 2.8 g/dL (3.5-5.0); BILIRUBIN,TOTAL 0.5 mg/dL (0.2-1.0); CREATININE 3.8 mg/dL (0.5-1.5); POTASSIUM 4.7 mmol/L (3.5-5.1); TOTAL PROTEIN, SERUM 7.1 g/dL (6.0-8.3)
[2021-07-26 09:46] LABS: EOSINOPHILS % (MANUAL) 2 % (1-6); LYMPHOCYTES % (MANUAL) 15 % (22-44); MAN.DIFF COMMENT-IMPRESSION MANUAL DIFFERENTIAL; MONOCYTES % (MANUAL) 4 % (2-9); SEGMENTED NEUTROPHILS % 79 % (40-70)
[2021-07-26 09:47] LABS: PLATELET MORPHOLOGY COMMENT ADEQUATE
[2021-07-26 14:18] LABS: ALBUMIN,BODY FLUID 1.6 g/dL
[2021-07-26 17:42] LABS: SPECIMENTYPE,BODY FLUID ASCITES
[2021-07-26 17:43] LABS: APPEARANCE BODY FLUID CLOUDY (CLEAR); BODY FLUID WBC 38 /cu. mm.; COLOR,BODY FLUID ORANGE (LT YELLOW); TOTAL VOLUME,BODY FLUID 3100 mL
[2021-07-26 17:44] LABS: BODY FLUID RBC 8200 /cu. mm.
[2021-07-26 19:09] LABS: BF LYMPHOCYTE 51 %; BF OTHER CELLS 5
== END | disposition home or self-care (01) ==
LOC: RAH 08:36
PROVIDERS: ATTEND Internal Medicine Gastroenterology
DX: R18.8 Other ascites (principal); E11.22 Type 2 diabetes mellitus with diabetic chronic kidney disease; I12.9 Hypertensive chronic kidney disease with stage 1 through stage 4 chronic kidney disease, or unspecified chronic kidney disease; N18.9 Chronic kidney disease, unspecified; E03.9 Hypothyroidism, unspecified; E78.5 Hyperlipidemia, unspecified; E66.9 Obesity, unspecified; D64.9 Anemia, unspecified; Z90.49 Acquired absence of other specified parts of digestive tract; Z98.890 Other specified postprocedural states; Z84.1 Family history of disorders of kidney and ureter; Z82.49 Family history of ischemic heart disease and other diseases of the circulatory system; Z68.35 Body mass index [BMI] 35.0-35.9, adult; Z86.010 Personal history of colon polyps; Z79.01 Long term (current) use of anticoagulants
CPT/HCPCS: 36415; 49083; 80053; 82042; 84157; 85025; 85610; 87071; 87205; 88112; 88305; 89051; C1729; J3490

== ENCOUNTER → 2021-08-09 | Outpatient (CLI) | payer MEDICARE ==
[~2021-08-09] MED LIST changes: +ALBUMIN (HUMAN) 25% 200 ML IV SCH
[2021-08-09 17:01] LABS: APPEARANCE BODY FLUID CLOUDY (CLEAR); BODY FLUID WBC 165 /cu. mm.; COLOR,BODY FLUID YELLOW (LT YELLOW); SPECIMENTYPE,BODY FLUID ASCITES; TOTAL VOLUME,BODY FLUID 3000 mL
[2021-08-09 17:02] LABS: BODY FLUID RBC 4225 /cu. mm.
[2021-08-09 17:41] LABS: BF LYMPHOCYTE 59 %; BF MONOCYTE 1 %; BF OTHER CELLS 12
== END | disposition home or self-care (01) ==
LOC: RAH 08:32
PROVIDERS: ATTEND Internal Medicine Gastroenterology
DX: R18.8 Other ascites (principal); E11.22 Type 2 diabetes mellitus with diabetic chronic kidney disease; I12.9 Hypertensive chronic kidney disease with stage 1 through stage 4 chronic kidney disease, or unspecified chronic kidney disease; N18.9 Chronic kidney disease, unspecified; E03.9 Hypothyroidism, unspecified; E78.5 Hyperlipidemia, unspecified; E66.9 Obesity, unspecified; D64.9 Anemia, unspecified; Z90.49 Acquired absence of other specified parts of digestive tract; Z79.899 Other long term (current) drug therapy; Z98.890 Other specified postprocedural states; Z84.1 Family history of disorders of kidney and ureter; Z82.49 Family history of ischemic heart disease and other diseases of the circulatory system; Z86.010 Personal history of colon polyps; Z68.35 Body mass index [BMI] 35.0-35.9, adult; Z79.01 Long term (current) use of anticoagulants
CPT/HCPCS: 49083; 87071; 87205; 88112; 88305; 89051; C1729; J3490; P9046

== ENCOUNTER → 2021-08-23 | Outpatient (CLI) | payer MEDICARE ==
[~2021-08-23] MED LIST changes: -ALBUMIN (HUMAN) 25% 200 ML IV SCH
[2021-08-23 14:17] LABS: APPEARANCE BODY FLUID SLIGHTLY CLOUDY (CLEAR); BODY FLUID RBC 200 /cu. mm.; BODY FLUID WBC 246 /cu. mm.; COLOR,BODY FLUID YELLOW (LT YELLOW); SPECIMENTYPE,BODY FLUID ASCITES; TOTAL VOLUME,BODY FLUID 2500 mL
[2021-08-23 14:24] LABS: BF LYMPHOCYTE 60 %; BF MESOTHELIAL 4 %; BF MONOCYTE 26 %
== END | disposition home or self-care (01) ==
LOC: RAH 08:27
PROVIDERS: ATTEND Internal Medicine Gastroenterology
DX: R18.8 Other ascites (principal); E11.22 Type 2 diabetes mellitus with diabetic chronic kidney disease; I12.9 Hypertensive chronic kidney disease with stage 1 through stage 4 chronic kidney disease, or unspecified chronic kidney disease; N18.9 Chronic kidney disease, unspecified; E03.9 Hypothyroidism, unspecified; E78.5 Hyperlipidemia, unspecified; E66.9 Obesity, unspecified; D64.9 Anemia, unspecified; Z90.49 Acquired absence of other specified parts of digestive tract; Z98.890 Other specified postprocedural states; Z79.899 Other long term (current) drug therapy; Z84.1 Family history of disorders of kidney and ureter; Z82.49 Family history of ischemic heart disease and other diseases of the circulatory system; Z86.010 Personal history of colon polyps; Z68.35 Body mass index [BMI] 35.0-35.9, adult; Z79.01 Long term (current) use of anticoagulants
CPT/HCPCS: 49083; 87071; 87205; 88112; 88305; 88341; 88342; 89051; C1729; J3490

== ENCOUNTER → 2021-09-06 | Outpatient (CLI) | payer MEDICARE ==
[~2021-09-06] MED LIST changes: -LIDOCAINE HCL MPF 1% 5ML VIAL ONE
[2021-09-06 08:32] LABS: BASOPHILS % (AUTO) 0.6 % (0.0-5.0); EOSINOPHILS % (AUTO) 2.7 % (0.0-8.0); HEMATOCRIT 28.2 % (36-48); LYMPHOCYTES % (AUTO) 20.1 % (21.0-51.0); MEAN CORPUSCULAR HEMOGLOBIN 30.4 pg (27.0-33.0); MEAN CORPUSCULAR HGB CONC 31.6 g/dL (32.0-36.0); MEAN CORPUSCULAR VOLUME 96.2 fL (79-99); MONOCYTES % (AUTO) 7.4 % (3.0-13.0); NEUTROPHILS % (AUTO) 68.8 % (40.0-77.0); PLATELET COUNT (AUTO) 117 K/uL (130-400); RED BLOOD CELL COUNT(AUTO) 2.93 MIL/uL (4.00-5.50); RED CELL DISTRIBUTION WIDTH 14.2 % (11.0-15.5); WHITE BLOOD COUNT (AUTO) 4.7 K/uL (4.8-10.8)
[2021-09-06 08:42] LABS: PROTHROMBIN TIME 10.9 SEC (9.6-11.6)
[2021-09-06 08:48] LABS: ALBUMIN 2.5 g/dL (3.5-5.0); BILIRUBIN,TOTAL 0.4 mg/dL (0.2-1.0); CREATININE 4.7 mg/dL (0.5-1.5); POTASSIUM 5.2 mmol/L (3.5-5.1); TOTAL PROTEIN, SERUM 6.7 g/dL (6.0-8.3)
[2021-09-06 13:53] LABS: APPEARANCE BODY FLUID CLEAR (CLEAR); BODY FLUID RBC 209 /cu. mm.; BODY FLUID WBC 363 /cu. mm.; COLOR,BODY FLUID YELLOW (LT YELLOW); SPECIMENTYPE,BODY FLUID ASCITES; TOTAL VOLUME,BODY FLUID 3700 mL
[2021-09-06 14:10] LABS: BF LYMPHOCYTE 52 %; BF MESOTHELIAL 36 %; BF MONOCYTE 5 %
== END | disposition home or self-care (01) ==
LOC: RAH 08:12
PROVIDERS: ATTEND Internal Medicine Gastroenterology
DX: R18.8 Other ascites (principal); E11.22 Type 2 diabetes mellitus with diabetic chronic kidney disease; I12.9 Hypertensive chronic kidney disease with stage 1 through stage 4 chronic kidney disease, or unspecified chronic kidney disease; N18.9 Chronic kidney disease, unspecified; E03.9 Hypothyroidism, unspecified; E78.5 Hyperlipidemia, unspecified; E66.9 Obesity, unspecified; D64.9 Anemia, unspecified; Z90.49 Acquired absence of other specified parts of digestive tract; Z79.899 Other long term (current) drug therapy; Z98.890 Other specified postprocedural states; Z84.1 Family history of disorders of kidney and ureter; Z82.49 Family history of ischemic heart disease and other diseases of the circulatory system; Z86.010 Personal history of colon polyps; Z68.35 Body mass index [BMI] 35.0-35.9, adult; Z79.01 Long term (current) use of anticoagulants
CPT/HCPCS: 36415; 49083; 80053; 85025; 85610; 87071; 87205; 88112; 88305; 89051; C1729

== ENCOUNTER → 2021-09-20 | Outpatient (CLI) | payer MEDICARE ==
[~2021-09-20] MED LIST changes: +CARV25TA PO; +FERS325 PO; +FURO40TA5 PO; +HYDR-4153 PO; +INSLAN SQ; +KETOROLAC 0.5% OP; +LACT10SO5 PO; +LIDOCAINE HCL MPF 1% 5ML VIAL ONE
[2021-09-20 16:43] LABS: APPEARANCE BODY FLUID SLIGHTLY CLOUDY (CLEAR); COLOR,BODY FLUID YELLOW (LT YELLOW); SPECIMENTYPE,BODY FLUID ASCITES; TOTAL VOLUME,BODY FLUID 2000 mL
[2021-09-20 16:44] LABS: BODY FLUID RBC 212 /cu. mm.; BODY FLUID WBC 115 /cu. mm.
[2021-09-20 16:51] LABS: BF EOSINOPHIL 1 %; BF LYMPHOCYTE 33 %; BF MESOTHELIAL 30 %
== END | disposition home or self-care (01) ==
LOC: RAH 08:12
PROVIDERS: ATTEND Internal Medicine Gastroenterology
DX: R18.8 Other ascites (principal); Z79.01 Long term (current) use of anticoagulants
CPT/HCPCS: 49083; 87071; 87205; 88112; 88305; 88341; 88342; 89051; C1729; J3490

== ENCOUNTER → 2021-10-19 | Outpatient (CLI) | payer MEDICARE ==
[~2021-10-19] MED LIST changes: -ACET-66 PO; -ACET1TAB12 PO; -CAND16TA28 PO; -HYDR25TA PO; -LEVO500T90 PO; -LORA10TA7 PO; -METF-445 PO; -OSEL75 PO; -TRAZ-185 PO
[2021-10-19 15:56] LABS: APPEARANCE BODY FLUID SLIGHTLY CLOUDY (CLEAR); SPECIMENTYPE,BODY FLUID ASCITES
[2021-10-19 15:57] LABS: BODY FLUID WBC 175 /cu. mm.; COLOR,BODY FLUID YELLOW (LT YELLOW); TOTAL VOLUME,BODY FLUID 3200 mL
[2021-10-19 15:58] LABS: BODY FLUID RBC 588 /cu. mm.
[2021-10-19 17:37] LABS: BF LYMPHOCYTE 4 %
== END | disposition home or self-care (01) ==
LOC: RAH 08:04
PROVIDERS: ATTEND Internal Medicine Gastroenterology
DX: R18.8 Other ascites (principal); E11.22 Type 2 diabetes mellitus with diabetic chronic kidney disease; I12.9 Hypertensive chronic kidney disease with stage 1 through stage 4 chronic kidney disease, or unspecified chronic kidney disease; N18.9 Chronic kidney disease, unspecified; E03.9 Hypothyroidism, unspecified; E78.5 Hyperlipidemia, unspecified; E66.9 Obesity, unspecified; D64.9 Anemia, unspecified; Z90.49 Acquired absence of other specified parts of digestive tract; Z98.890 Other specified postprocedural states; Z82.49 Family history of ischemic heart disease and other diseases of the circulatory system; Z84.1 Family history of disorders of kidney and ureter; Z79.01 Long term (current) use of anticoagulants; Z79.899 Other long term (current) drug therapy
CPT/HCPCS: 49083; 87071; 87205; 88112; 88305; 89051; C1729; J3490; 96365

== ENCOUNTER → 2021-11-23 | Outpatient (CLI) | payer OTHER, MEDICARE ==
[2021-11-23 09:02] LABS: BASOPHILS % (AUTO) 0.5 % (0.0-5.0); EOSINOPHILS % (AUTO) 2.8 % (0.0-8.0); HEMATOCRIT 31.5 % (36-48); LYMPHOCYTES % (AUTO) 19.9 % (21.0-51.0); MEAN CORPUSCULAR HEMOGLOBIN 29.3 pg (27.0-33.0); MEAN CORPUSCULAR HGB CONC 32.1 g/dL (32.0-36.0); MEAN CORPUSCULAR VOLUME 91.3 fL (79-99); MONOCYTES % (AUTO) 6.8 % (3.0-13.0); NEUTROPHILS % (AUTO) 69.7 % (40.0-77.0); PLATELET COUNT (AUTO) 81 K/uL (130-400); RED BLOOD CELL COUNT(AUTO) 3.45 MIL/uL (4.00-5.50); RED CELL DISTRIBUTION WIDTH 14.1 % (11.0-15.5)
[2021-11-23 09:14] LABS: ALBUMIN 2.9 g/dL (3.5-5.0); BILIRUBIN,TOTAL 0.6 mg/dL (0.2-1.0); POTASSIUM 3.6 mmol/L (3.5-5.1); TOTAL PROTEIN, SERUM 7.2 g/dL (6.0-8.3)
[2021-11-23 09:54] LABS: INR 1.03 (0.85-1.15); PROTHROMBIN TIME 11.2 SEC (9.6-11.6)
[2021-11-23 12:31] LABS: APPEARANCE BODY FLUID SLIGHTLY CLOUDY (CLEAR); COLOR,BODY FLUID LT YELLOW (LT YELLOW); SPECIMENTYPE,BODY FLUID ASCITES; TOTAL VOLUME,BODY FLUID 4100 mL
[2021-11-23 12:37] LABS: BODY FLUID RBC 193 /cu. mm.; BODY FLUID WBC 140 /cu. mm.
[2021-11-23 13:28] LABS: BF LYMPHOCYTE 52 %; BF MESOTHELIAL 42 %
== END | disposition home or self-care (01) ==
LOC: RAH 08:04
PROVIDERS: ATTEND Internal Medicine Gastroenterology
DX: R18.8 Other ascites (principal); E11.22 Type 2 diabetes mellitus with diabetic chronic kidney disease; I12.9 Hypertensive chronic kidney disease with stage 1 through stage 4 chronic kidney disease, or unspecified chronic kidney disease; N18.9 Chronic kidney disease, unspecified; E03.9 Hypothyroidism, unspecified; E78.5 Hyperlipidemia, unspecified; E66.9 Obesity, unspecified; D64.9 Anemia, unspecified; Z90.49 Acquired absence of other specified parts of digestive tract; Z98.890 Other specified postprocedural states; Z82.49 Family history of ischemic heart disease and other diseases of the circulatory system; Z84.1 Family history of disorders of kidney and ureter; Z79.01 Long term (current) use of anticoagulants; Z79.899 Other long term (current) drug therapy
CPT/HCPCS: 36415; 49083; 80053; 85025; 85610; 87071; 87205; 89051; C1729; J3490; 96365

== ENCOUNTER → 2022-01-13 | Outpatient (CLI) | payer OTHER, MEDICARE ==
[~2022-01-13] MED LIST changes: +ALBUMIN (HUMAN) 25% 200 ML IV SCH; -LIDOCAINE HCL MPF 1% 5ML VIAL ONE
[2022-01-13 08:48] LABS: HEMATOCRIT 36.3 % (36-48); MEAN CORPUSCULAR HEMOGLOBIN 30.5 pg (27.0-33.0); MEAN CORPUSCULAR VOLUME 95.5 fL (79-99); PLATELET COUNT (AUTO) 78 K/uL (130-400); RED CELL DISTRIBUTION WIDTH 14.8 % (11.0-15.5); WHITE BLOOD COUNT (AUTO) 5.8 K/uL (4.8-10.8)
[2022-01-13 09:02] LABS: PROTHROMBIN TIME 10.9 SEC (9.6-11.6)
[2022-01-13 09:03] LABS: ALBUMIN 3.3 g/dL (3.5-5.0); BILIRUBIN,TOTAL 0.6 mg/dL (0.2-1.0); CREATININE 4.3 mg/dL (0.5-1.5); POTASSIUM 4.3 mmol/L (3.5-5.1); TOTAL PROTEIN, SERUM 8.1 g/dL (6.0-8.3)
[2022-01-13 10:03] LABS: EOSINOPHILS % (MANUAL) 1 % (1-6); LYMPHOCYTES % (MANUAL) 18 % (22-44); MONOCYTES % (MANUAL) 4 % (2-9); SEGMENTED NEUTROPHILS % 77 % (40-70)
[2022-01-13 10:04] LABS: MAN.DIFF COMMENT-IMPRESSION MANUAL DIFFERENTIAL; PLATELET MORPHOLOGY COMMENT DECREASED
== END | disposition home or self-care (01) ==
LOC: RAH 08:34
PROVIDERS: ATTEND Internal Medicine Gastroenterology
DX: R18.8 Other ascites (principal)
CPT/HCPCS: 76705; 80053; 85025; 85610; 36415; P9046

== ENCOUNTER → 2022-02-03 | Outpatient (CLI) | payer OTHER, MEDICARE | END | disposition home or self-care (01) | LOC: RAH 08:13 | PROVIDERS: ATTEND Internal Medicine Gastroenterology | DX: R18.8 Other ascites (principal) | CPT/HCPCS: 76705; P9046 ==

== ENCOUNTER → 2022-05-03 | Outpatient (CLI) | payer OTHER, MEDICARE ==
[~2022-05-03] MED LIST changes: -ALBUMIN (HUMAN) 25% 200 ML IV SCH
== END | disposition home or self-care (01) ==
LOC: RAH 09:41
PROVIDERS: ATTEND Internal Medicine Gastroenterology
DX: R18.8 Other ascites (principal); R14.0 Abdominal distension (gaseous)
CPT/HCPCS: 76700

== ENCOUNTER → 2022-06-07 | Outpatient (CLI) | payer OTHER, MEDICARE ==
[~2022-06-07] MED LIST changes: +ALBUMIN (HUMAN) 25% 200 ML IV SCH
[2022-06-07 09:11] LABS: BASOPHILS % (AUTO) 0.5 % (0.0-5.0); EOSINOPHILS % (AUTO) 1.8 % (0.0-8.0); HEMATOCRIT 34.8 % (36-48); LYMPHOCYTES % (AUTO) 21.4 % (21.0-51.0); MEAN CORPUSCULAR HEMOGLOBIN 30.4 pg (27.0-33.0); MEAN CORPUSCULAR HGB CONC 32.8 g/dL (32.0-36.0); MEAN CORPUSCULAR VOLUME 92.8 fL (79-99); MONOCYTES % (AUTO) 6.4 % (3.0-13.0); NEUTROPHILS % (AUTO) 69.5 % (40.0-77.0); PLATELET COUNT (AUTO) 94 K/uL (130-400); RED BLOOD CELL COUNT(AUTO) 3.75 MIL/uL (4.00-5.50); RED CELL DISTRIBUTION WIDTH 14.6 % (11.0-15.5); WHITE BLOOD COUNT (AUTO) 5.5 K/uL (4.8-10.8)
[2022-06-07 09:22] LABS: INR 0.96 (0.85-1.15); PROTHROMBIN TIME 10.5 SEC (9.6-11.6)
[2022-06-07 09:24] LABS: PARTIAL THROMBOPLASTIN TIME 31.2 SEC (26.3-35.5)
[2022-06-07 09:39] LABS: ALBUMIN 3.5 g/dL (3.5-5.0); CREATININE 4.2 mg/dL (0.5-1.5); TOTAL PROTEIN, SERUM 8.6 g/dL (6.0-8.3)
[2022-06-07 12:37] LABS: ALBUMIN,BODY FLUID 2.1 g/dL
[2022-06-07 13:56] LABS: SPECIMENTYPE,BODY FLUID ASCITES
[2022-06-07 13:57] LABS: APPEARANCE BODY FLUID CLEAR (CLEAR); BODY FLUID WBC 324 /cu. mm.; COLOR,BODY FLUID YELLOW (LT YELLOW); TOTAL VOLUME,BODY FLUID 3500 mL
[2022-06-07 13:58] LABS: BODY FLUID RBC 99 /cu. mm.
[2022-06-07 14:34] LABS: BF LYMPHOCYTE 33 %; BF MESOTHELIAL 31 %
== END | disposition home or self-care (01) ==
LOC: RAH 07:03
PROVIDERS: ATTEND Internal Medicine Gastroenterology
DX: R18.8 Other ascites (principal); R93.2 Abnormal findings on diagnostic imaging of liver and biliary tract; R14.0 Abdominal distension (gaseous); K59.00 Constipation, unspecified; L29.9 Pruritus, unspecified; I12.9 Hypertensive chronic kidney disease with stage 1 through stage 4 chronic kidney disease, or unspecified chronic kidney disease; N18.9 Chronic kidney disease, unspecified; E11.22 Type 2 diabetes mellitus with diabetic chronic kidney disease; E03.9 Hypothyroidism, unspecified; E78.5 Hyperlipidemia, unspecified; D63.1 Anemia in chronic kidney disease; Z86.010 Personal history of colon polyps; Z79.4 Long term (current) use of insulin; Z79.899 Other long term (current) drug therapy
CPT/HCPCS: 49083; 84157; 80053; 85025; 89051; 85610; 85730; 87071; 87076; 87205; 82042; 36415; 88108; 88305; 88342; 88341; C1729

== ENCOUNTER 2022-08-19 10:19 | Observation (INO) | payer MEDICARE ==
[~2022-08-19] VITALS: Ht 162.6 cm; Wt 83.9 kg
[~2022-08-19 10:19] MED LIST changes: -ALBUMIN (HUMAN) 25% 200 ML IV SCH
[2022-08-19 11:04] LABS: BASOPHILS % (AUTO) 0.5 % (0.0-5.0); EOSINOPHILS % (AUTO) 1.8 % (0.0-8.0); HEMATOCRIT 33.5 % (36-48); LYMPHOCYTES % (AUTO) 20.1 % (21.0-51.0); MEAN CORPUSCULAR HEMOGLOBIN 31.6 pg (27.0-33.0); MEAN CORPUSCULAR HGB CONC 33.4 g/dL (32.0-36.0); MEAN CORPUSCULAR VOLUME 94.6 fL (79-99); MONOCYTES % (AUTO) 6.2 % (3.0-13.0); NEUTROPHILS % (AUTO) 70.4 % (40.0-77.0); PLATELET COUNT (AUTO) 132 K/uL (130-400); RED BLOOD CELL COUNT(AUTO) 3.54 MIL/uL (4.00-5.50); RED CELL DISTRIBUTION WIDTH 13.5 % (11.0-15.5); WHITE BLOOD COUNT (AUTO) 6.2 K/uL (4.8-10.8)
[2022-08-19 11:15] LABS: CREATININE 3.1 mg/dL (0.5-1.5); POTASSIUM 3.6 mmol/L (3.5-5.1)
[2022-08-19 11:20] LABS: ALBUMIN 3.2 g/dL (3.5-5.0); TOTAL PROTEIN, SERUM 7.7 g/dL (6.0-8.3)
[2022-08-19 11:54] LABS: APPEARANCE,URINE CLOUDY (CLEAR); BILIRUBIN,URINE NEGATIVE (NEGATIVE); COLOR,URINE YELLOW (YELLOW); GLUCOSE, URINE (UA) TRACE mg/dL (NEGATIVE); KETONES,URINE NEGATIVE (NEGATIVE); LEUKOCYTE ESTERASE ,URINE 250 Leu/uL (NEGATIVE); NITRATE,URINE NEGATIVE (NEGATIVE); PH,URINE 5.5 (5.0-8.0); PROTEIN,URINE 100 mg/dL (NEGATIVE); UROBILINOGEN,URINE 0.2 mg/dL (0.2-1.0)
[2022-08-19 12:01] LABS: BACTERIA,URINE FEW /HPF (None Seen); MUCUS,URINE RARE LPF (None Seen); SQUAMOUS EPITHELIAL CELL,UR MOD /HPF (0-2)
[2022-08-19] MEDS ORDERED: CEFTRIAXONE 1G VIAL IVP ONE (13:00)
[2022-08-19 15:30] VITALS: BP 149/75
[2022-08-19] MEDS ORDERED: CILO100T3 PO (17:08)
[2022-08-19] MEDS ORDERED: ISOS30TA92 PO (17:08)
[2022-08-19 17:36] LABS: HEMOGLOBIN A1C 5.6 % (4.0-6.0)
[2022-08-19 21:09] VITALS: BP 125/69
[2022-08-19] MEDS: INSULIN HUMULIN R 100 UNIT/ML 3ML SQ SCH (22:30)
[2022-08-19 23:47] VITALS: BP 125/59
[2022-08-20 03:29] VITALS: BP 125/58
[2022-08-20] MEDS: INSULIN HUMULIN R 100 UNIT/ML 3ML SQ SCH ×4 (06:49→21:00)
[2022-08-20] MEDS ORDERED: REGADENOSON 0.4 MG/5 ML PF SYG IVP SCH (07:00)
[2022-08-20 08:00] VITALS: BP 133/77
[2022-08-20 12:00] VITALS: BP 174/74
[2022-08-20 15:15] VITALS: BP 128/62
[2022-08-20 16:00] VITALS: BP 128/62
[2022-08-20 20:09] VITALS: BP 153/68
[2022-08-21 00:12] VITALS: BP 150/68
[2022-08-21 03:58] VITALS: BP 160/80
[2022-08-21] MEDS: INSULIN HUMULIN R 100 UNIT/ML 3ML SQ SCH ×2 (06:57→12:02)
[2022-08-21 08:00] VITALS: BP 155/76
[2022-08-21 11:33] VITALS: BP 157/71
== END 2022-08-21 14:10 | disposition home or self-care (01) ==
LOC: EDH 10:19 → EDHIP 13:22 → INTOOBSV 13:22 → 3DH 15:15
PROVIDERS: ADMIT Internal Medicine; ATTEND Internal Medicine
DX: M54.12 Radiculopathy, cervical region (principal); R07.89 Other chest pain; I13.0 Hypertensive heart and chronic kidney disease with heart failure and stage 1 through stage 4 chronic kidney disease, or unspecified chronic kidney disease; I50.9 Heart failure, unspecified; N18.9 Chronic kidney disease, unspecified; E11.22 Type 2 diabetes mellitus with diabetic chronic kidney disease; I25.10 Atherosclerotic heart disease of native coronary artery without angina pectoris; E03.9 Hypothyroidism, unspecified; Z79.899 Other long term (current) drug therapy; Z98.890 Other specified postprocedural states; Z90.49 Acquired absence of other specified parts of digestive tract; Z79.4 Long term (current) use of insulin
CPT/HCPCS: 99285; 83036; 82550 ×3; 83735; 83874 ×3; 84484 ×4; 80053; 85025; 87077; 87088; 87186; 82948 ×8; 83605; 81001; 36415 ×2; 71045; 96374; 93005; 93017; 78452; 73130; J0696; J2785; A9500 ×2; J1815; G0378 ×2; 96375

== ENCOUNTER 2022-11-15 09:50 | Day surgery (SDC) | payer MEDICARE ==
[2022-11-11 11:43] LABS: HEMATOCRIT 36.9 % (36-48); MEAN CORPUSCULAR HEMOGLOBIN 31.5 pg (27.0-33.0); MEAN CORPUSCULAR HGB CONC 32.2 g/dL (32.0-36.0); MEAN CORPUSCULAR VOLUME 97.6 fL (79-99); RED BLOOD CELL COUNT(AUTO) 3.78 MIL/uL (4.00-5.50); RED CELL DISTRIBUTION WIDTH 13.5 % (11.0-15.5); WHITE BLOOD COUNT (AUTO) 6.3 K/uL (4.8-10.8)
[2022-11-11 11:55] LABS: CREATININE 3.2 mg/dL (0.5-1.5); POTASSIUM 3.6 mmol/L (3.5-5.1)
[2022-11-11 11:56] LABS: INR 0.93 (0.85-1.15); PROTHROMBIN TIME 10.2 SEC (9.6-11.6)
[2022-11-11 11:57] LABS: PARTIAL THROMBOPLASTIN TIME 31.6 SEC (26.3-35.5)
[2022-11-11 12:16] VITALS: BP 156/70
[~2022-11-15] VITALS: Ht 157.5 cm; Wt 83.7 kg
[~2022-11-15 09:50] MED LIST changes: +CILO100T3 PO; -FERS325 PO; -FURO40TA5 PO; +ISOS30TA92 PO; -KETOROLAC 0.5% OP
[2022-11-15] MEDS ORDERED: CEFAZOLIN SODIUM 2 GM VIAL ONE (10:33)
[2022-11-15] MEDS ORDERED: 0.9% NACL 500ML IV.SOLN 500 ML IV ONE (10:34)
[2022-11-15 10:55] VITALS: BP 141/58
[2022-11-15 11:02] LABS: CREATININE 5.4 mg/dL (0.5-1.5); POTASSIUM 3.8 mmol/L (3.5-5.1)
== END 2022-11-15 13:30 | disposition home or self-care (01) ==
LOC: DAH 09:50
PROVIDERS: ATTEND Thoracic Surgery (Cardiothoracic Vascular Surgery)
DX: E11.22 Type 2 diabetes mellitus with diabetic chronic kidney disease (principal); Z20.822 Contact with and (suspected) exposure to COVID-19; I12.0 Hypertensive chronic kidney disease with stage 5 chronic kidney disease or end stage renal disease; N18.6 End stage renal disease; F41.9 Anxiety disorder, unspecified; Z79.01 Long term (current) use of anticoagulants; Z79.899 Other long term (current) drug therapy; Z53.8 Procedure and treatment not carried out for other reasons
CPT/HCPCS: 71045; 87426; 80048 ×2; 85027; 85610; 85730; 86850 ×2; 86900 ×2; 86901 ×2; 36415 ×2; 93005; 82948; A6260; A4663; J7040; A4215; A4223; A4222; A4221

== ENCOUNTER 2022-12-01 06:34 | Day surgery (SDC) | payer MEDICARE ==
[2022-11-29 11:21] VITALS: BP 140/57
[2022-11-29 11:26] LABS: HEMATOCRIT 39.1 % (36-48); MEAN CORPUSCULAR HGB CONC 32.2 g/dL (32.0-36.0); MEAN CORPUSCULAR VOLUME 96.3 fL (79-99); RED BLOOD CELL COUNT(AUTO) 4.06 MIL/uL (4.00-5.50); RED CELL DISTRIBUTION WIDTH 13.8 % (11.0-15.5); WHITE BLOOD COUNT (AUTO) 6.9 K/uL (4.8-10.8)
[2022-11-29 11:32] LABS: CREATININE 5.4 mg/dL (0.5-1.5); POTASSIUM 4.5 mmol/L (3.5-5.1)
[2022-11-29 11:35] LABS: INR 0.93 (0.85-1.15); PROTHROMBIN TIME 10.2 SEC (9.6-11.6)
[2022-11-29 11:36] LABS: PARTIAL THROMBOPLASTIN TIME 33.6 SEC (26.3-35.5)
[2022-12-01] VITALS (16 sets, daily range): BP systolic 104–133; BP diastolic 46–61
[~2022-12-01] VITALS: Ht 157.5 cm; Wt 85.2 kg
[2022-12-01] MEDS ORDERED: CEFAZOLIN SODIUM 2 GM VIAL ONE (07:00)
[2022-12-01] MEDS ORDERED: 0.9% NACL 500ML IV.SOLN 500 ML IV ONE (07:00)
[2022-12-01 07:26] LABS: CREATININE 5.4 mg/dL (0.5-1.5)
[2022-12-01] MEDS ORDERED: ONDA4TAB10 PO (07:27)
[2022-12-01] MEDS ORDERED: AMLO-257 PO (07:27)
[2022-12-01] MEDS ORDERED: CEFAZOLIN SODIUM 1 GM VIAL ONE (07:48)
[2022-12-01] MEDS ORDERED: BUPIVACAINE/PF 0.5% 10ML VIAL ONE (07:50)
[2022-12-01] MEDS ORDERED: LIDOCAINE HCL 1% 20 ML VIAL ONE (07:51)
[2022-12-01] MEDS ORDERED: LIDOCAINE PF 100MG/5ML (2%) SYRINGE 5ML ONE (08:05)
[2022-12-01] MEDS ORDERED: MIDAZOLAM HCL 1 MG/ML 2ML VIAL ONE (08:05)
[2022-12-01] MEDS ORDERED: FENTANYL CITRATE PF 50 MCG/1 ML 2ML VIAL ONE (08:05)
[2022-12-01] MEDS ORDERED: PROPOFOL 10 MG/ML 20ML VIAL IV ONE (08:05)
[2022-12-01] MEDS ORDERED: BUPIVACAINE/PF 0.25% 30ML VIAL IJ ONE (08:06)
[2022-12-01] MEDS ORDERED: SUCCINYLCHOLINE CHLORIDE 20 MG/ML 10 ML VIAL ONE (08:12)
[2022-12-01] MEDS ORDERED: ROCURONIUM 10MG/1ML SYR 10 MG/ML ML ONE (08:12)
[2022-12-01] MEDS ORDERED: LIDOCAINE HCL 1% 20 ML VIAL MISC ONE (08:20)
[2022-12-01] MEDS ORDERED: BUPIVACAINE/EPI/PF 0.25% 10ML VIAL IJ ONE (08:20)
[2022-12-01] MEDS ORDERED: PHENYLEPHRINE HCL 10 MG/ML 1ML VIAL IV ONE (08:30)
[2022-12-01] MEDS ORDERED: EPHEDRINE SULFATE 50 MG/ML AMPULE ONE (09:19)
[2022-12-01] MEDS ORDERED: GLYCOPYRROLATE 1 MG/5 ML SYRINGE ONE (09:37)
[2022-12-01] MEDS ORDERED: NEOSTIGMINE 5MG/5ML SYR IV ONE (09:37)
== END 2022-12-01 10:19 | disposition home or self-care (01) ==
LOC: DAH 06:34
PROVIDERS: ATTEND Thoracic Surgery (Cardiothoracic Vascular Surgery)
DX: T82.590A Other mechanical complication of surgically created arteriovenous fistula, initial encounter (principal); Z20.822 Contact with and (suspected) exposure to COVID-19; E11.22 Type 2 diabetes mellitus with diabetic chronic kidney disease; I12.0 Hypertensive chronic kidney disease with stage 5 chronic kidney disease or end stage renal disease; N18.6 End stage renal disease; E66.9 Obesity, unspecified; F41.9 Anxiety disorder, unspecified; Z99.2 Dependence on renal dialysis; Z90.49 Acquired absence of other specified parts of digestive tract; Z68.31 Body mass index [BMI] 31.0-31.9, adult; Y83.2 Surgical operation with anastomosis, bypass or graft as the cause of abnormal reaction of the patient, or of later complication, without mention of misadventure at the time of the procedure; Y92.89 Other specified places as the place of occurrence of the external cause
CPT/HCPCS: 80048 ×2; 85027; 85610; 85730; 86850; 86900; 86901; 87426; 36415 ×2; 71045; 93005; 36830; 82948 ×2; A6260; A4663; A6207; J7030; A4452; J7040; J3010; J0690 ×2; J3490 ×4; J2710; J0330; J2001; J2250; J2704; J1644; J2370; A4649 ×2; C1713 ×2; C1768; A4215; A4223; A4222; A4221

== ENCOUNTER 2024-04-13 16:27 | Emergency (ER) | payer MEDICARE ==
[~2024-04-13] VITALS: Ht 157.5 cm; Wt 82.6 kg
[~2024-04-13 16:27] MED LIST changes: +AMLO-257 PO; -AMLO-258 PO; -HYDR-4153 PO; -INSLAN SQ; -LACT10SO5 PO; +LACT10SO76 PO
[2024-04-13] MEDS ORDERED: ondanSETRON 4MG INJ IVP STA (16:49)
[2024-04-13 17:03] LABS: BASOPHILS # (AUTO) 0.03 K/uL (0.00-0.20); BASOPHILS % (AUTO) 0.3 % (0.0-5.0); EOSINOPHILS # (AUTO) 0.16 K/uL (0.00-0.70); EOSINOPHILS % (AUTO) 1.4 % (0.0-8.0); HEMATOCRIT 31.6 % (36-48); IMMATURE GRANULOCYTE ABSOLUTE 0.05 K/uL (0-1); LYMPHOCYTES # (AUTO) 0.6 K/uL (1.0-4.8); LYMPHOCYTES % (AUTO) 4.8 % (21.0-51.0); MEAN CORPUSCULAR HEMOGLOBIN 30.7 pg (27.0-33.0); MEAN CORPUSCULAR HGB CONC 33.9 g/dL (32.0-36.0); MEAN CORPUSCULAR VOLUME 90.5 fL (79-99); MONOCYTES # (AUTO) 0.6 K/uL (0.1-1.0); MONOCYTES % (AUTO) 5.1 % (3.0-13.0); NEUTROPHILS # (AUTO) 10.4 K/uL (1.8-7.7); PLATELET COUNT (AUTO) 130 K/uL (130-400); RED BLOOD CELL COUNT(AUTO) 3.49 MIL/uL (4.00-5.50); RED CELL DISTRIBUTION WIDTH 13.4 % (11.0-15.5); WHITE BLOOD COUNT (AUTO) 11.8 K/uL (4.8-10.8)
[2024-04-13 17:10] LABS: CREATININE 4.6 mg/dL (0.5-1.0)
[2024-04-13] MEDS: acetaMINOPHEN 325 MG TAB PO STA (17:36)
[2024-04-13 18:31] LABS: APPEARANCE,URINE CLOUDY (CLEAR); BILIRUBIN,URINE NEGATIVE (NEGATIVE); COLOR,URINE YELLOW (YELLOW); GLUCOSE, URINE (UA) 200 mg/dL (NEGATIVE); KETONES,URINE NEGATIVE (NEGATIVE); LEUKOCYTE ESTERASE ,URINE 75 Leu/uL (NEGATIVE); NITRATE,URINE NEGATIVE (NEGATIVE); OCCULT BLOOD,URINE LARGE (NEGATIVE); PROTEIN,URINE 600 mg/dL (NEGATIVE); UROBILINOGEN,URINE 0.2 mg/dL (0.2-1.0)
[2024-04-13 18:32] LABS: ADD UA MICROSCOPIC YES
[2024-04-13 18:39] LABS: BACTERIA,URINE RARE /HPF (None Seen); MUCUS,URINE RARE LPF (None Seen); SQUAMOUS EPITHELIAL CELL,UR MANY /HPF (0-2)
[2024-04-13] MEDS: cefTRIAXone 1G VIAL IM STA (18:58)
[2024-04-13] MEDS ORDERED: CEPH500B PO (19:49)
[2024-04-13 20:00] VITALS: BP 152/78; PULSE 88; RESP 18; TEMP 99.2; O2SAT 95
== END 2024-04-13 20:09 | disposition home or self-care (01) ==
LOC: EDH 16:27
DX: S80.01XA Contusion of right knee, initial encounter (principal); M54.50 Low back pain, unspecified; N39.0 Urinary tract infection, site not specified; I12.0 Hypertensive chronic kidney disease with stage 5 chronic kidney disease or end stage renal disease; E11.22 Type 2 diabetes mellitus with diabetic chronic kidney disease; N18.6 End stage renal disease; E03.9 Hypothyroidism, unspecified; Z79.02 Long term (current) use of antithrombotics/antiplatelets; Z79.899 Other long term (current) drug therapy; Z90.49 Acquired absence of other specified parts of digestive tract; Z99.2 Dependence on renal dialysis; W01.0XXA Fall on same level from slipping, tripping and stumbling without subsequent striking against object, initial encounter; Y93.89 Activity, other specified; Y92.89 Other specified places as the place of occurrence of the external cause; Y99.8 Other external cause status
CPT/HCPCS: 99285; 71045; 80048; 85025; 87086 ×2; 87186; 81001; 36415; 73562; 72100; 96372; 93005; J0696

== ENCOUNTER 2025-04-28 04:59 | Emergency (ER) | payer MEDICARE, MEDICAID ==
[~2025-04-28] VITALS: Ht 157.5 cm; Wt 75.7 kg
[~2025-04-28 04:59] MED LIST changes: +CEPH500B PO
--- NOTE | 2025-04-28 05:13 | EKG ---
[facility] Test Date: 2025-04-28 Test Time: 05:08:59 Pat Name: EMMETT VICOTR Department: ED Room: Gender: F [employer] Laboratory Assistant: [id number] : 1955 Requested By: KAVITA CARMONA Order Number: [id number] Reading MD: Lucy Abbott Measurements Intervals [place] Rate: 89 P: 21 FL: 173 QRS: -39 QRSD: 108 T: 70 QT: 424 QTc: 516 Interpretive Statements Sinus rhythm Left ventricular hypertrophy Prolonged QT interval Compared to ECG 04/13/2024 17:12:38 Prolonged QT interval now present Early repolarization no longer present Electronically Signed On 04-28-2025 12:11:15 CDT by Lucy Abbott Please click the below link to view image of tracing.
--- NOTE | 2025-04-28 06:05 | ERN ---
General Chief Complaint: Multiple Complaints Stated Complaint: CHEST PAIN, BODYACHES, SUBJECTIVE FEVER. N/V Time Seen by MD: 05:18 History of Present Illness Initial Comments PATIENT IS A 69-YEAR-OLD FEMALE COMING IN WITH MULTIPLE COMPLAINTS. PER PATIENT SHE HAS BEEN HAVING NAUSEOUSNESS VOMITING BODY ACHES AND CHEST DISCOMFORT. PATIENT DOES HAS A HISTORY OF END-STAGE RENAL DISEASE REQUIRING DIALYSIS SHE STARTED HAVING SOME SUBJECTIVE FEVER AND CHILLS DECIDED TO COME IN FOR FURTHER EVALUATION. LONG WITH THIS PATIENT HAS BEEN PRESENTING WITH GENERALIZED BODY WEAKNESS. Allergies: Coded Allergies: No Known Drug Allergies (Verified Allergy, Unknown, 10/06/14) Home Meds Active Scripts Cephalexin Monohydrate (Keflex) 500 Mg Cap, 500 MG PO QID for 7 Days, #28 CAP Prov:GLORIA WALDRON [employer] APPRENTICE 04/13/24 Reported Medications Lactulose (Constulose) 10 Gram/15 Ml Solution, 10 GM PO DAILY, ML 02/19/24 Isosorbide Mononitrate (Isosorbide Mononitrate ER) 30 Mg Tab.er.24h, 30 MG PO DAILY, TAB 02/19/24 Cilostazol (Cilostazol) 100 Mg Tablet, 100 MG PO BID, TAB 02/19/24 Amlodipine Besylate (Amlodipine Besylate) 5 Mg Tablet, 5 MG PO DAILY, TAB 12/01/22 Carvedilol (Carvedilol) 25 Mg Tablet, 25 MG PO BID, TAB 09/27/21 Levothyroxine Sodium (Levothyroxine Sodium) 175 Mcg Tablet, 50 MCG PO ACBKFST, TAB 10/08/14 Past Medical History Past Medical History: Diabetes-Type II, Hypertension, Hypothyroid, Renal Disese, Renal Failure Medical History Other: CKD ON DIALYSIS Past Surgical History: Cholecystectomy, LAVA Female( History) History: Not Applicable ROS Dictation CONSTITUTIONAL: NO CHILLS, FEVER, WEAKNESS, NO DIAPHORESIS, MALAISE. HEAD/FACE: NO SIGNS OF TRAUMA. EENT: NO EYE PAIN, NO BLURRED VISION, NO TEARING, NO DOUBLE VISION, NO EAR PAIN, NO EAR DISCHARGE, NO NOSE PAIN, NO NASAL CONGESTION, NO THROAT PAIN, NO THROAT SWELLING, NO MOUTH PAIN. RESPIRATORY: NO COUGH, NO ORTHOPNEA, NO SOB, NO STRIDOR, NO WHEEZING. CARDIOVASCULAR: NO CHEST PAIN, NO EDEMA, NO PALPITATIONS, NO SYNCOPE. GASTROINTESTINAL/ABDOMINAL: NO ABDOMINAL PAIN, NO CONSTIPATION, NO DIARRHEA, NO NAUSEA, NO VOMITING. GENITOURINARY: NO ABNORMAL DISCHARGE, NO DYSURIA, NO FREQUENT URINATION, NO HEMATURIA. NO COMPLAINTS OF PAIN IN THE GENITALS. MUSCULOSKELETAL: NO BACK PAIN, NO GOUT, NO JOINT PAIN, NO JOINT SWELLING, MUSCLE PAIN, NO MUSCLE STIFFNESS, NO NECK PAIN. INTEGUMENTARY: NO CHANGE IN COLOR, NO CHANGE IN HAIR/NAILS, NO DRYNESS, NO LESION, NO LUMPS, NO RASH. NEUROLOGICAL/PSYCH: NO ANXIETY, NOT DEPRESSED, NO EMOTIONAL PROBLEM, NO HEADACHE, NO NUMBNESS, NO PRE-EXISTING DEFICIT, NO HISTORY OF SEIZURES, NO TREMORS, NO WEAKNESS. HEMATOLOGIC/LYMPHATIC: NOT ANEMIC, NO HISTORY OF BLOOD CLOTS, NO APPARENT BLEEDING, NO BRUISING, GLANDS NOT SWOLLEN. ALL SYSTEMS NEGATIVE, EXCEPT NOTED. Physical Exam Physical Exam Dictation VITAL SIGNS: REVIEWED. GENERAL APPEARANCE: ALERT, ORIENTED X3, NO ACUTE DISTRESS, OBESE. HEAD AND FACE: NON-TRAUMATIC. EYES: PERRL, PINK CONJUNCTIVAS, EYELID NO TRAUMA, ANTERIOR CHAMBER CLEAR. EARS: PINNAS INTACT AND NO SIGNS OF TRAUMA OR ERYTHEMA. EAR CANALS CLEAR AND NO DISCHARGE. TMS NO ERYTHEMA. NOSE: NO DISCHARGE, NO BLEEDING. OROPHARYNX: MOUTH NORMAL, TEETH NO CARIES, TONGUE PINK. PHARYNX CLEAR, NO ERYTHEMA. TONSILS NO EXUDATES, NO ABSCESSES NOTED. MUCOUS MEMBRANE MOIST. NECK: SUPPLE, NON-TENDER, NO THYROMEGALY, NO MASSES, NO JVD, NO BRUITS. BREAST: DEFERRED. CHEST: NO TENDERNESS, NO CREPITUS, NO PARADOXICAL MOVEMENT, NO RETRACTIONS. LUNGS: CLEAR, WELL-VENTILATED, SYMMETRIC, NO RALES, NO WHEEZING, NO RHONCHI, NO STRIDOR, GOOD BREATH SOUNDS BILATERALLY. HEART: REGULAR RATE, REGULAR RHYTHM, NO MURMUR, NO GALLOPS. VASCULAR: NO PERIPHERAL EDEMA. ABDOMEN: SOFT, POSITIVE BOWEL SOUNDS, NONDISTENDED, NO GUARDING, NONTENDER, NO REBOUND, NO MASSES NO HEPATOMEGALY, NO SPLENOMEGALY, NO VORA'S SIGN, NO HERNIAS. RECTAL: DEFERRED. GENITAL: DEFERRED. NEUROLOGICAL: NORMAL SPEECH, GROSS MOTOR FUNCTION INTACT, GROSS SENSORY FUNCTION INTACT. MUSCULOSKELETAL: NECK NONTENDER, FULL RANGE OF MOTION, BACK NONTENDER, FULL RANGE OF MOTION. EXTREMITIES: NONTENDER, FULL RANGE OF MOTION. SKIN: COLOR PINK, DRY, NO TURGOR, NO RASH, NO LACERATIONS, NO ABRASIONS, NO CONTUSIONS. LYMPHATICS: DEFERRED. General Appearance: (+) no apparent distress, (+) apparent distress Orientation: (+) alert, (+) oriented x 3 Neck: (+) normal inspection, (+) supple Respiratory: (+) chest non-tender Heart: (+) regular, (+) no gallop Gastrointestinal: (+) soft, (+) non-tender, (+) no organomegaly, (+) bowel sound present Extremities: (+) normal range of motion, (+) non-tender Results Laboratory and Microbiology Lab and Micro Result Laboratory Tests Test 04/28/25 06:47 04/28/25 06:53 Urine Color YELLOW (YELLOW) Urine Appearance TURBID (CLEAR) H Urine pH 6.5 (5.0-8.0) Urine Specific [place] 1.020 (1.001-1.031) Urine Protein >=300 mg/dL (NEGATIVE) H Urine Glucose (UA) NEGATIVE mg/dL (NEGATIVE) Urine Ketones NEGATIVE mg/dL (NEGATIVE) Urine Occult Blood MODERATE (NEGATIVE) H Urine Nitrate POSITIVE (NEGATIVE) H Urine Bilirubin SMALL mg/dL (NEGATIVE) H Urine Urobilinogen 0.2 mg/dL (0.2-1.0) Urine Leukocyte Esterase MODERATE [place]/uL Urine RBC 6-10 /HPF (0-1) H Urine WBC TNTC /HPF (0-1) H Urine Squamous Epithelial Cells Few /HPF (0-2) Urine Renal Epithelial Cells Many /HPF (None Seen) H Urine Bacteria Few /HPF (None Seen) White Blood Count 5.7 K/uL (4.8-10.8) Red Blood Count 3.31 MIL/uL (4.00-5.50) L Hemoglobin 10.6 g/dL (12.0-16.0) L Hematocrit 31.1 % (36-48) L Mean Corpuscular Volume 94.0 fL (79-99) Mean Corpuscular Hemoglobin 32.0 pg (27.0-33.0) Mean Corpuscular Hemoglobin Concent 34.1 g/dL (32.0-36.0) Red Cell Distribution Width 14.4 % (11.0-15.5) Platelet Count 165 K/uL (130-400) Mean Platelet Volume 10.4 fL (7.5-10.5) Immature Granulocyte % (Auto) 0.5 % (0-1) Neutrophils (%) (Auto) 86.8 % (40.0-77.0) H Lymphocytes (%) (Auto) 6.8 % (21.0-51.0) L Monocytes (%) (Auto) 5.6 % (3.0-13.0) Eosinophils (%) (Auto) 0.0 % (0.0-8.0) Basophils (%) (Auto) 0.3 % (0.0-5.0) Neutrophils # (Auto) 5.0 K/uL (1.8-7.7) Lymphocytes # (Auto) 0.4 K/uL (1.0-4.8) L Monocytes # (Auto) 0.3 K/uL (0.1-1.0) Eosinophils # (Auto) 0.00 K/uL (0.00-0.70) Basophils # (Auto) 0.02 K/uL (0.00-0.20) Absolute Immature Granulocyte (auto 0.03 K/uL (0-1) Nucleated Red Blood Cells 0.0 % (0.0-0.19) White Cell Morphology Comment See comments Sodium Level 132 mmol/L (136-145) L Potassium Level 3.5 mmol/L (3.5-5.1) Chloride Level 95 mmol/L (101-111) L Carbon Dioxide Level 26 mmol/L (21-32) Blood Urea Nitrogen 67 mg/dL (7-18) H Creatinine 6.4 mg/dL (0.5-1.0) H Glomerular Filtration Rate Calc 7 mL/min (>90) Random Glucose 134 mg/dL (70-105) H Total Calcium 7.7 mg/dL (8.5-10.1) L Total Creatine Kinase 63 U/L (21-232) # Troponin I High Sensitivity 38 ng/L (4-50) Labs Reviewed?: Yes EKG/XRAY/US/CT/MRI EKG Comment 04/28/2025 time 5:08 a.m. Ventricular rate 89 Sinus rhythm [place] [address] wave elevation or depression X-RAY Comment IMAGING REPORT Signed PATIENT: EMMETT VICTOR MR#: [id number] : 1955 SEX: F AGE: 69 LOCATION: [facility] ORDER 2 STATUS: [facility] ER REPORT#: [id number] SERVICE 1 REASON: CHEST PAIN ORDERING PHYSICIAN: KAVITA CARMONA MD PROCEDURE: CXR1VW - CHEST 1VW EXAM: CR Chest, single view. CLINICAL HISTORY: Chest pain. COMPARISON: None. FINDINGS: The lungs show no infiltrate or other acute findings. Linear subsegmental atelectasis in the left lower lobe. No pleural effusion or pneumothorax. The cardiomediastinal silhouette is within normal limits. Mild bilateral pulmonary congestion. Mild tortuosity of the descending thoracic aorta. No acute osseous abnormality. IMPRESSION: Linear subsegmental atelectasis in the left lower lobe. Mild bilateral pulmonary congestion. Normal cardiac size. /[place] DICTATED BY: SELINA COLEMAN Jr., MD DATE: 04/28/25755 ELECTRONICALLY SIGNED BY: SELINA COLEMAN Jr., MD DATE: 04/28/25755 [facility] MDM: DIFFERENTIAL DIAGNOSIS: END-STAGE RENAL DISEASE REQUIRING DIALYSIS, UTI, GENERALIZED BODY WEAKNESS, SEIZURES, RATIONALE: TESTS CONSIDERED AND ORDERED SECONDARY TO SHARED DECISION MAKING INCLUDE: LABS, ECG AND RADIOLOGY PREVIOUS OUTSIDE RECORDS REVIEWED: OLD ER VISITS. RISK OF COMPLICATION AND/OR MORBIDITY OR MORTALITY OF PATIENT MANAGEMENT: NONE MEDICATIONS-PER MEDICATION RECONCILIATION NEED FOR HOSPITALIZATION: PATIENT DOES MEET CRITERIA FOR HOSPITALIZATION. NEED FOR EMERGENCY MAJOR/MINOR SURGERY: NO THERE ARE NO SOCIAL CONCERNS WITH THIS PATIENT. PRESCRIPTION DRUG MANAGEMENT PRESCRIPTIONS WILL INCLUDE SYMPTOMATIC CARE PATIENT'S PRIOR EXTERNAL MEDICAL RECORDS FROM OTHER ER VISITS WERE REVIEWED BY ME INDICATED. PRIOR TESTING AND RESULTS FROM PREVIOUS VISITS WERE REVIEWED. PRIOR TESTS WERE TAKEN INTO ACCOUNT WITH MEDICAL DECISION MAKING AND RESOURCE UTILIZATION, INDEPENDENT HISTORIAN/HISTORIANS WERE USED TO OBTAIN COMPLETE MEDICAL HISTORY. I INDEPENDENTLY INTERPRETED THE TEST THAT WERE PERFORMED, RESULTS WERE REVIEWED BY ME AND CONSIDERED FINDINGS ON RADIOLOGY IF ORDERED. MEDICAL MANAGEMENT AND EXAMINATION INTERPRETATION DISCUSSIONS WERE HAD BY ME WITH OTHER QUALIFIED HEALTHCARE PROFESSIONALS INDICATED FOR THE PATIENT'S CARE. Per Dr. Jean Baptiste request patient should be discharged to follow up as outpatient. Patient did receive some IV Rocephin and we will continue oral an tibiotics at home. ED Course Orders Procedure Category Date Status Time Vital Signs Per CPOE 04/28/25 Transmitted Routine 05:02 Chest 1vw RAD 04/28/25 Resulted 05:02 12 Lead Ekg Tracing- EKG 04/28/25 Complete Technical 05:02 Oxygen By Nc/Pulse Ox CPOE 04/28/25 Transmitted 05:02 Maintain Iv CPOE 04/28/25 Transmitted 05:02 Iv Insertion CPOE 04/28/25 Transmitted 05:02 Cardiac Monitoring CPOE 04/28/25 Transmitted 05:02 Pulse Oximetry With CPOE 04/28/25 Transmitted Vs And Prn 05:02 Cbc With Differential LAB 04/28/25 Complete 05:02 Activity: Br W/Brp CPOE 04/28/25 Transmitted With Assist 05:02 Creatine Kinase, Total LAB 04/28/25 Complete 05:02 Troponin I High LAB 04/28/25 Complete Sensitivity 05:02 Urinalysis Profile LAB 04/28/25 Complete 05:02 Basic Metabolic Panel LAB 04/28/25 Complete 05:02 Culture Urine MARIA DEL CARMEN 04/28/25 In Process 07:03 Ceftriaxone 1g Vial PHA 04/28/25 Complete (Rocephine 1g Inj) 08:30 Current Medications Medications (Trade) Dose Ordered Sig/Connie Route PRN Reason Start Time Stop Time Status Last Admin Dose Admin Ceftriaxone Sodium (ROCEphine 1G INJ) 1 gm ONCE ONCE IVPB 04/28/25 08:30 04/28/25 08:36 DC Vital Signs Date Time Temp Pulse Resp B/P (MAP) Pulse Ox O2 Delivery O2 Flow Rate FiO2 04/28/25 07:36 98.1 78 14 135/59 99 Room Air* 0 21 04/28/25 06:45 83 18 125/69 96 Room Air* 0 21 04/28/25 05:01 97.9 111 20 139/53 100 Room Air DX & DISP Disposition: Discharge Departure Impression: Primary Impression: ESRD (end stage renal disease) on dialysis Additional Impression: Urinary tract infection Condition: Stable Scripts Cephalexin Monohydrate (Keflex) 500 Mg Cap 1 CAP PO BID for 10 Days, #20 CAP 0 Refills Prov: ZULEIMA POOLE MD 04/28/25 Additional Instructions: FOLLOW-UP WITH PRIMARY CARE PROVIDER IN 1 TO 2 DAYS. TAKE MEDICATIONS DIRECTED HERE IN THE EMERGENCY ROOM. OKAY TO CONTINUE HOME MEDICATIONS UNLESS OTHERWISE DISCUSSED DURING YOUR VISIT IN THE EMERGENCY ROOM TODAY. RETURN TO YOUR NEAREST EMERGENCY ROOM IF SYMPTOMS WORSEN OR IF THERE IS NO IMPROVEMENT. CALL 911 IF YOU NEED IMMEDIATE ASSISTANCE. TAKE TYLENOL [id number] NEEDED AND IF NO CONTRAINDICATIONS ARE PRESENT. INCREASE ORAL HYDRATION. A WOUND CULTURE OR URINE CULTURE WAS ORDERED HERE IN THE EMERGENCY ROOM DEPARTMENT PLEASE FOLLOW-UP WITH PRIMARY CARE PROVIDER AND ADVISE THEM TO GET REPORTS FROM OUR FACILITY. IF YOU HAD ANY BIB WRAP/SPLINTS THAT WERE APPLIED HERE, PLEASE DO NOT REMOVE THEM UNTIL YOU SEE YOUR PRIMARY CARE OR SPECIALTY. Referrals: Referrals: RENEE JEAN BAPTISTE MD (PCP) Time of Disposition: 08:43 KAVITA CARMONA MD Apr 28, 2025 06:05 ZULEIMA POOLE MD Apr 28, 2025 08:32
--- NOTE | 2025-04-28 06:44 | NUR ---
PATIENT OBTAINING URINE SAMPLE AT THIS TIME.
--- NOTE | 2025-04-28 06:57 | HMCIMG ---
EXAM: CR Chest, single view. CLINICAL HISTORY: Chest pain. COMPARISON: None. FINDINGS: The lungs show no infiltrate or other acute findings. Linear subsegmental atelectasis in the left lower lobe. No pleural effusion or pneumothorax. The cardiomediastinal silhouette is within normal limits. Mild bilateral pulmonary congestion. Mild tortuosity of the descending thoracic aorta. No acute osseous abnormality. IMPRESSION: Linear subsegmental atelectasis in the left lower lobe. Mild bilateral pulmonary congestion. Normal cardiac size. /[place]
[2025-04-28 07:01] LABS: GLUCOSE, URINE (UA) NEGATIVE (NEGATIVE); LEUKOCYTE ESTERASE ,URINE MODERATE Leu/uL (NEGATIVE); NITRATE,URINE POSITIVE (NEGATIVE); OCCULT BLOOD,URINE MODERATE (NEGATIVE)
[2025-04-28 07:03] LABS: ADD UA MICROSCOPIC YES
[2025-04-28 07:04] LABS: APPEARANCE,URINE TURBID (CLEAR)
[2025-04-28 07:09] LABS: IMMATURE GRANULOCYTE ABSOLUTE 0.03 K/uL (0-1); NUCLEATED RED BLOOD CELLS 0.0 % (0.0-0.19); PLATELET COUNT (AUTO) 165 K/uL (130-400); RED BLOOD CELL COUNT(AUTO) 3.31 MIL/uL (4.00-5.50); RED CELL DISTRIBUTION WIDTH 14.4 % (11.0-15.5); WHITE BLOOD COUNT (AUTO) 5.7 K/uL (4.8-10.8)
[2025-04-28 07:13] LABS: SQUAMOUS EPITHELIAL CELL,UR Few /HPF (0-2)
[2025-04-28 07:30] LABS: CREATININE 6.4 mg/dL (0.5-1.0); GLOMERULAR FILTR. RATE CALC 7.0 mL/min (>90); GLUCOSE,RANDOM 134.0 mg/dL (70-105); SODIUM SERUM 132.0 mmol/L (136-145); UREA NITROGEN, BLOOD 67.0 mg/dL (7-18)
[2025-04-28 07:50] LABS: CREATINE KINASE, TOTAL 63.0 U/L (21-232)
[2025-04-28] MEDS ORDERED: CEPH500B PO (08:44)
[2025-04-28 11:04] VITALS: BP 165/65; PULSE 68; RESP 19; TEMP 98; O2SAT 97
== END 2025-04-28 11:03 | disposition home or self-care (01) ==
LOC: EDH 04:59
DX: I13.11 Hypertensive heart and chronic kidney disease without heart failure, with stage 5 chronic kidney disease, or end stage renal disease (principal); E11.22 Type 2 diabetes mellitus with diabetic chronic kidney disease; N18.6 End stage renal disease; N39.0 Urinary tract infection, site not specified; R07.89 Other chest pain; R11.2 Nausea with vomiting, unspecified; E03.9 Hypothyroidism, unspecified; Z79.899 Other long term (current) drug therapy; Z90.49 Acquired absence of other specified parts of digestive tract; Z99.2 Dependence on renal dialysis
CPT/HCPCS: 99285; 96374; 71045; 84484; 82550; 80048; 85025; 87086 ×2; 87186; 81001; 36415; 93005; J0696